=== PATIENT | male | born 1990 | race Caucasian/White ===

== ENCOUNTER 2023-01-10 20:56 | Outpatient (OUT) | payer OTHER, SELFPAY | END 2023-01-10 20:57 | disposition home or self-care (01) | LOC: SLEEP 20:56 | PROVIDERS: PCP Physician Assistant Medical; Visit Provider Physician Assistant Medical | DX: G47.33 Obstructive sleep apnea (adult) (pediatric) (principal) | CPT/HCPCS: 95811 ==

== ENCOUNTER 2023-02-02 11:01 | Emergency (ER) | payer OTHER, SELFPAY ==
[2023-02-02] VITALS (28 sets, daily range): BP systolic 114–206; BP diastolic 70–141; PULSE 63–111; RESP 19–20; TEMP 36.4; O2SAT 91–98; BMI 36.6
[2023-02-02] MEDS: ONDANSETRON PF 4 MG/2 ML VIAL IV (11:24)
[2023-02-02] MEDS: 0.9 % SODIUM CHLORIDE 1,000 ML 999 ML IV (11:24)
--- NOTE | 2023-02-02 11:30 | ECG_ITS ---
[facility] Test Date: 2023-02-02 Pat Name: DEREK CENTENO Department: Room: - Gender: Male Editorial Director: : 1990 Requested By: Order Number: [id number] Reading MD: HAYLEY AKINS Measurements Intervals [place] Rate: 92 P: 31 PA: 158 QRS: 26 QRSD: 86 T: 28 QT: 360 QTc: 410 Interpretive Statements 1100 Sinus rhythm 9110 normal ECG No previous ECG available for comparison Electronically Signed On 02-03-2023 6:58:13 EDT by HAYLEY AKINS
[2023-02-02] MEDS: LORAZEPAM 2 MG/ML 1 ML VIAL 1 MG IV (11:49)
[2023-02-02] MEDS: LEVETIRACETAM 500 MG/5 ML SOLUTION PO (11:55)
[2023-02-02 12:00] LABS: Basophils Absolute Auto 0.1 10^3/uL (0.0-0.1); Basophils Percent Auto 0.3 % (0.2-2.0); Eosinophils Absolute Auto 0.2 10^3/uL (0.0-0.7); Eosinophils Percent Auto 0.6 % (0.9-7.0); Hematocrit 48.7 % (42.0-54.0); Immature Granulocytes Abs Auto 0.24 10^3/uL (0.00-0.03); Immature Granulocytes Pct Auto 0.9 % (0.0-0.5); Lymphocytes Absolute Auto 4.9 10^3/uL (1.2-3.8); Lymphocytes Percent Auto 18.3 % (20.5-60.0); Mean Corpuscular HGB Conc 32.9 g/dL (29.9-35.2); Mean Corpuscular Hemoglobin 30.7 pg (25.9-34.0); Mean Corpuscular Volume 93.3 fL (80.0-94.0); Mean Platelet Volume 11.1 fL (9.5-13.5); Monocytes Absolute Auto 2.2 10^3/uL (0.3-0.8); Monocytes Percent Auto 8.2 % (1.7-12.0); Neutrophils Absolute Auto 19.2 10^3/uL (1.4-6.5); Neutrophils Percent Auto 71.7 % (43.0-75.0); Platelet Count 364 10^3/uL (150-450); Red Blood Count 5.22 10^6/uL (4.70-6.10); Red Cell Distribution Width 13.9 % (11.0-15.0); White Blood Count 26.8 10^3/uL (4.0-11.0)
[2023-02-02 12:18] LABS: Alanine Aminotransferase 59 U/L (16-63); Albumin Globulin Ratio 0.8; Albumin Level 3.8 g/dL (3.4-5.0); Alkaline Phosphatase 63 U/L (46-116); Aspartate Amino Transferase 49 U/L (15-37); BUN Creatinine Ratio 11.6; Bilirubin Total 0.6 mg/dL (0.2-1.0); Calcium 9.4 mg/dL (8.5-10.1); Carbon Dioxide 15.2 mmol/L (21.0-32.0); Chloride 100 mmol/L (98-107); Estimated GFR (African America >60 (>=60); Estimated GFR (Non-African Ame >60 (>=60); Globulin 4.8 g/dL; Glucose 173 mg/dL (74-106); Magnesium 2.2 mg/dL (1.8-2.4); Potassium 4.2 mmol/L (3.5-5.1); Sodium 137 mmol/L (136-145); Total Protein 8.6 g/dL (6.4-8.2)
--- NOTE | 2023-02-02 13:49 | ED_ITS ---
HPI - Seizure General Chief Complaint: Seizure Stated Complaint: SEIZURE Time Seen by Provider: 02/02/23 11:09 Source: family Mode of arrival: Wheelchair History of Present Illness HPI Narrative: patient with history of epilepsy presents after multiple seizures at home. Family member told me that he had a recent change in his seizure meds. She has some concern because he sees a different provider each time they go tot he neurologist's office and then meds get changes. The patient is post-ctal on arrival. No injuries suspected. Patient sees YADIRA in [place]. 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 Takes keppra and depakote Seizure History: Yes Place: home Related Data Home Medications Medication Instructions Recorded Confirmed allopurinol 300 mg tablet 300 mg PO DAILY 02/02/23 02/02/23 divalproex 250 mg tablet,delayed 500 mg PO BID 02/02/23 02/02/23 release divalproex 250 mg tablet,extended 750 mg PO BID 02/02/23 02/02/23 release 24 hr levetiracetam 500 mg tablet 500 mg PO BID 02/02/23 02/02/23 Allergies Allergy/AdvReac Type Severity Reaction Status Date / Time naproxen [From Aleve] Allergy Severe Verified 02/02/23 11:07 Exam Narrative Exam Narrative: Nurses note and vital signs reviewed and patient is not hypoxic. afebrile General: The patient is slightly confused and drowsy on arrival Skin: Warm, dry, no pallor noted. Head: Normocephalic, atraumatic Neck: Supple, trachea mid-line. Full ROM and no cervical spinal tenderness. Eyes: PERRLA, EOMI ENT: no oral injury - bit his tongue with an abrasion Cardiovascular: Regular Rate and Rhythm Respiratory: Patient is in no distress, no accessory muscle use, lungs are clear to auscultation, no wheezing, rales or rhonchi Chest Wall: no tenderness, no flail chest, contusion, abrasion, or signs of trauma. Back: No thoracic or lumbar tenderness to palpation. Negative straight leg raise bilaterally. Musculoskeletal: no sign of long bone fracture, no tenderness, no swelling. Pulses at femoral, DP, PT, and popliteal were 2+ bilaterally. Moves all four extremities in all modalities with 5/5 strength. GI: Normal bowel sounds, no tenderness to palpation, no masses appreciated. No rebound, guarding, or rigidity noted. Neurological: normal motor, normal sensory. Psychiatric: Cooperative Constitutional Vital Signs, click to edit/add: Last Vital Signs Temp 97.6 F 02/02/23 11:08 Pulse 73 02/02/23 13:10 Resp 19 02/02/23 11:29 BP 131/71 02/02/23 13:00 Pulse Ox 98 02/02/23 13:10 O2 Del Method Room Air 02/02/23 11:08 Course Vital Signs Vital signs: Vital Signs Temperature 97.6 F 02/02/23 11:08 Pulse Rate 98 H 02/02/23 11:08 Respiratory Rate 20 02/02/23 11:08 Blood Pressure 181/116 H 02/02/23 11:08 Pulse Oximetry 91 L 02/02/23 11:08 Oxygen Delivery Method Room Air 02/02/23 11:08 Temperature 97.6 F 02/02/23 11:08 Pulse Rate 73 02/02/23 13:10 Respiratory Rate 19 02/02/23 11:29 Blood Pressure 131/71 02/02/23 13:00 Pulse Oximetry 98 02/02/23 13:10 Oxygen Delivery Method Room Air 02/02/23 11:08 MDM - Seizure MDM Narrative Medical decision making narrative: seizure precautions initiated.Patient was placed on [place] and EKG ob tained. Blood drawn and sent for evaluation. He was medicated with Keppra and Ativan. He woke up and was able to talk and interact normally has a normal neurological examination and no evidence of bony fracture or other injury. He does have a headache, which is typical during and following his seizures. WBC elevated at 26k but no fever, chills or recent symptoms to suggest infection - suspect it is reactive after multiple seizures. Remainder of blood testing unremarkable. Patient monitored for 3 hours in ED and was able to be discharged home, awake and alert and oriented x4 with GCS 15 and no further complaints. ED return if he worsens. Neuro follow up as scheduled if not earlier Lab Data Attestation: I reviewed the patient's lab results. Labs: Lab Results 02/02/23 Range/Units 11:12 WBC 26.8 H (4.0-11.0) 10^3/uL RBC 5.22 (4.70-6.10) 10^6/uL Hgb 16.0 (14.0-18.0) g/dL Hct 48.7 (42.0-54.0) % MCV 93.3 (80.0-94.0) fL MCH 30.7 (25.9-34.0) pg MCHC 32.9 (29.9-35.2) g/dL RDW 13.9 (11.0-15.0) % Plt Count 364 (150-450) 10^3/uL MPV 11.1 (9.5-13.5) fL Neut % (Auto) 71.7 (43.0-75.0) % Lymph % (Auto) 18.3 L (20.5-60.0) % [place] % (Auto) 8.2 (1.7-12.0) % Eos % (Auto) 0.6 L (0.9-7.0) % Baso % (Auto) 0.3 (0.2-2.0) % Neut # (Auto) 19.2 H (1.4-6.5) 10^3/uL Lymph # (Auto) 4.9 H (1.2-3.8) 10^3/uL [place] # (Auto) 2.2 H (0.3-0.8) 10^3/uL Eos # (Auto) 0.2 (0.0-0.7) 10^3/uL Baso # (Auto) 0.1 (0.0-0.1) 10^3/uL Abs Immat Gran (auto) 0.24 H (0.00-0.03) 10^3/uL Imm/Tot Granulo (auto) 0.9 H (0.0-0.5) % Sodium 137 (136-145) mmol/L Potassium 4.2 (3.5-5.1) mmol/L Chloride 100 (98-107) mmol/L Carbon Dioxide 15.2 L (21.0-32.0) mmol/L Anion Gap 26.0 BUN 11.0 (7.0-18.0) mg/dL Creatinine 0.95 (0.70-1.30) mg/dL Est GFR ( Amer) >60 (>=60) Est GFR (Non-Af Amer) >60 (>=60) BUN/Creatinine Ratio 11.6 Glucose 173 H (74-106) mg/dL Calcium 9.4 (8.5-10.1) mg/dL Magnesium 2.2 (1.8-2.4) mg/dL Total Bilirubin 0.6 (0.2-1.0) mg/dL AST 49 H (15-37) U/L ALT 59 (16-63) U/L Alkaline Phosphatase 63 (46-116) U/L Total Protein 8.6 H (6.4-8.2) g/dL Albumin 3.8 (3.4-5.0) g/dL Globulin 4.8 g/dL Albumin/Globulin Ratio 0.8 ECG Data Attestation: I personally reviewed and interpreted this ECG as follows: Interpretation: EKG interpretation: Emergency Department physician interpretation. Normal sinus rhythm at 92bpm. Normal axis, normal intervals and no ST segment elevation or depression. normal EKG Discharge Plan Discharge Chief Complaint: Seizure Clinical Impression: Epileptic seizure Patient Disposition: Home, Self-Care Time of Disposition Decision: 13:55 Prescriptions / Home Meds: No Action allopurinol 300 mg tablet 300 mg PO DAILY divalproex 250 mg tablet extended release 24 hr 750 mg PO BID levetiracetam 500 mg tablet 500 mg PO BID divalproex 250 mg tablet,delayed release (DR/EC) 500 mg PO BID Instructions: Epilepsy (ED), Recurrent Seizures in Adults (ED) Stand Alone Forms: Portal Instructions Referrals: JOHANNA SANTOYO [Primary Care Provider] - 1 week
[2023-02-02] MEDS: KETOROLAC TROMETHAMINE 30 MG/ML VIAL IVP (14:12)
== END 2023-02-02 14:23 | disposition home or self-care (01) ==
PROVIDERS: Emergency Provider Emergency Medicine; PCP Nurse Practitioner Family
DX: G40.909 Epilepsy, unspecified, not intractable, without status epilepticus (principal); Z79.899 Other long term (current) drug therapy
CPT/HCPCS: 36415; 80053; 83735; 85025; 93005; 96374; 96375; 99285

== ENCOUNTER 2023-02-03 10:53 | Outpatient (REF) | payer OTHER, SELFPAY ==
[2023-02-03 11:15] LABS: Basophils Percent Auto 0.2 % (0.2-2.0); Eosinophils Absolute Auto 0.1 10^3/uL (0.0-0.7); Eosinophils Percent Auto 1.3 % (0.9-7.0); Hematocrit 42.5 % (42.0-54.0); Hemoglobin 14.4 g/dL (14.0-18.0); Immature Granulocytes Abs Auto 0.03 10^3/uL (0.00-0.03); Immature Granulocytes Pct Auto 0.3 % (0.0-0.5); Lymphocytes Absolute Auto 3.1 10^3/uL (1.2-3.8); Lymphocytes Percent Auto 30.3 % (20.5-60.0); Mean Corpuscular HGB Conc 33.9 g/dL (29.9-35.2); Mean Corpuscular Hemoglobin 30.9 pg (25.9-34.0); Mean Corpuscular Volume 91.2 fL (80.0-94.0); Mean Platelet Volume 10.3 fL (9.5-13.5); Monocytes Absolute Auto 0.8 10^3/uL (0.3-0.8); Monocytes Percent Auto 7.9 % (1.7-12.0); Neutrophils Absolute Auto 6.1 10^3/uL (1.4-6.5); Platelet Count 284 10^3/uL (150-450); Red Blood Count 4.66 10^6/uL (4.70-6.10); White Blood Count 10.2 10^3/uL (4.0-11.0)
[2023-02-03 12:13] LABS: Alanine Aminotransferase 55 U/L (16-63); Albumin Globulin Ratio 0.9; Albumin Level 3.6 g/dL (3.4-5.0); Alkaline Phosphatase 50 U/L (46-116); Anion Gap 16.2; Aspartate Amino Transferase 30 U/L (15-37); BUN Creatinine Ratio 14.1; Bilirubin Total 0.9 mg/dL (0.2-1.0); Calcium 9.1 mg/dL (8.5-10.1); Carbon Dioxide 25.6 mmol/L (21.0-32.0); Chloride 103 mmol/L (98-107); Estimated GFR (African America >60 (>=60); Estimated GFR (Non-African Ame >60 (>=60); Glucose 99 mg/dL (74-106); Potassium 3.8 mmol/L (3.5-5.1); Sodium 141 mmol/L (136-145); Thyroid Stimulating Hormone 1.111 uIU/mL (0.358-3.740); Total Protein 7.6 g/dL (6.4-8.2)
[2023-02-06 20:07] LABS: Levetiracetam (Keppra), S 6.9 ug/mL (10.0-40.0)
== END 2023-02-03 10:54 | disposition home or self-care (01) ==
LOC: LAB 10:53
PROVIDERS: PCP Nurse Practitioner Family
DX: R56.9 Unspecified convulsions (principal); G40.209 Localization-related (focal) (partial) symptomatic epilepsy and epileptic syndromes with complex partial seizures, not intractable, without status epilepticus; G47.01 Insomnia due to medical condition
CPT/HCPCS: 36415; 80053; 80164; 80177; 84443; 85025

== ENCOUNTER 2023-08-12 08:36 | Outpatient (REF) | payer OTHER, SELFPAY | END 2023-08-12 08:37 | disposition home or self-care (01) | LOC: LAB 08:36 | PROVIDERS: PCP Nurse Practitioner Family | DX: G40.109 Localization-related (focal) (partial) symptomatic epilepsy and epileptic syndromes with simple partial seizures, not intractable, without status epilepticus (principal) | CPT/HCPCS: 36415; 80235 ==

== ENCOUNTER 2024-11-30 11:13 | Emergency (ER) | payer BC, SELFPAY ==
[2024-11-30 11:18] VITALS: BP 140/104; PULSE 60; TEMP 36.6; O2SAT 98; BMI 37.7
--- OUTSIDE RECORDS SUMMARY | 2024-11-30 11:24 | XMS_ITS | Encounter Summary ---
Author Organization [facility] Address [address] [place] [address] Care Team Providers Care Physics And Astronomy Professor Name Role Phone Ruperto Contreras Primary Care Provider [phone] Source Comments In the event this information is protected by the Federal Confidentiality of Alcohol and Drug AbusePatient Records regulations: The Federal rules restrict any use of the information to criminally investigate or prosecute any alcohol or drug abuse patient.[facility] Reason for Visit * Reason Onset Date Comments Refill Request 11/25/2024 Encounter Details Date Type Department Care Team (Late st Contact Info) Description 11/25/2024 Refill Neurology [address], [place] [id number] Jeffry Arteaga PA-C [address] [facility] [address] [place] [address] Refill Request Social History Tobacco Use Types Packs/Day Years Used Date Smoking Tobacco: Never Assessed PHQ-2 Answer Date Recorded PHQ-2 score 0 10/16/2023 Sex and Gender Information Value Date Recorded Sex Assigned at Male 03/21/2023 9:37 AM EDT Legal Sex Male 9:36 AM EDT Gender Identity Male 03/21/2023 9:37 AM EDT Sexual Orientation Straight 03/21/2023 9: 37 AM EDT documented as of this encounter Functional Status * Are you deaf or do you have serious difficulty hearing? Answer Date of Assessment Author No 04/23/2023 5:44 PM Daina Chris RN * Are you blind or do you have serious difficulty seeing, even when wearing glasses? Answer Date of Assessment Author No 04/23/2023 5:44 PM Daina Chris RN * Do you have serious difficulty walking or climbing stairs? Answer Date of Assessment Author No 04/23/2023 5:44 PM Daina Chris RN * Do you have difficulty dressing or bathing? Answer Date of Assessment Author No 04/23/2023 5:44 PM Daina Chris RN * Because of a physical, mental, or emotional condition, do you have difficulty doing errands alone such as visiting a doctor's office or shopping? Answer Date of Assessment Author No 04/23/2023 5:44 PM Daina Chris RN documented as of this encounter Mental Status * Because of a physical, mental, or emotional condition, do you have serious difficulty concentrating, remembering, or making decisions? Answer Entry Date Author No 04/23/2023 5:44 PM Daina Chris RN documented in this encounter Miscellaneous Notes * Telephone Encounter - Amanda Lopez - 11/26/2024 3:57 PM EDT Request declined - Refills still showing active and available at local pharmacy. 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
--- OUTSIDE RECORDS SUMMARY | 2024-11-30 11:24 | XMS_ITS | Clinical Summary ---
Author Organization [facility] Address [address] [place], [place] [id number] Care Team Providers Care Coordinator Cardiopulmonary Services Name Role Phone Diane Ruperto Xie DO Primary Care Provider [phone] Allergies Active Allergy Reactions Criticality Noted Date Comments Naproxen Rash High 06/06/2021 Medications allopurinol (ZYLOPRIM) 100 mg tablet Take 300 mg by mouth once daily. 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 May repeat dose in alternate nostril after 10 minutes based on response and tolerability. 4 Each 1 04/23/[address] (DEPAKOTE) 500 mg EC tablet Take 1 tablet by mouth two times a day. 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 90 tablet 1 11/15/19 25 2024 Active lacosamide (VIMPAT) 200 mgIndications:Fo amanda epilepsy with impairment of consciousness (HCC) Take 1 tablet by mouth every 12 hours for 90 days. Need appointment for further refills. 180 tablet 11/27/19 25 2024 Active lacosamide (VIMPAT) 200 mgIndications:Fo amanda epilepsy with impairment of consciousness (HCC) Take 1 tablet by mouth two times a day for 180 days. 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 90 tablet 1 05/21/20 24 2024 Discontinued Active Problems Problem Noted Date Diagnosed Date Seizure-like activity 04/24/2023 Nicotine use disorder, F17.2 04/22/2023 Focal epilepsy with impairment of consciousness 04/21/2023 Encounters Date Type Department Care Team Description 11/30/2024 Nurse Triage NURSE SERVICE PARTS COORDINATOR [address] [phone] Ruth Hill, lean specialist Problem 11/26/2024 Patient Msg Neurology [address] [phone] Provider, Ccf Annual Epilepsy 11/25/2024 Refill Neurology [address] [phone] Jeffry Arteaga PA-C Refill Request 11/24/2024 Refill Neurology [address] [phone] Ruth Melvin APRN.ELECTRONIC MASKING SYSTEM OPERATOR Refill Request 11/14/2024 Refill Neurology [address] [phone] Katrina Alvarez PA-C Refill Request 11/14/2024 Refill Neurology [address] [place] [address] Katrina Alvarez PA-C Refill Request from Last 3 Months Social History Tobacco Use Types Packs/Day Years Used Date Smoking Tobacco: Never Assessed Tobacco Cessation:Counseling Given: No PHQ-2 Answer Date Recorded PHQ-2 score 0 10/16/2023 Sex and Gender Information Value Date Recorded Sex Assigned at Male 03/21/2023 9:37 AM EDT Legal Sex Male 9:36 AM EDT Gender Identity Male 03/21/2023 9:37 AM EDT Sexual Orientation Straight 03/21/2023 9: 37 AM EDT Last Filed Vital Signs Vital Sign Reading Time Taken Comments Blood Pressure 131/76 04/23/2023 12:22 PM EST Pulse 71 04/23/2023 12:22 PM EST Temperature 36.8 C (98.2 F) 04/23/2023 12:22 PM EST Respiratory Rate 16 04/23/2023 12:2 2 PM EST Oxygen Saturation 98% 04/23/2023 12: 22 PM EST Inhaled Oxygen Concentration - - Weight 126.2 kg (278 lb 3.5 oz) 04/22/2023 3:54 AM EST Height 182.9 cm (6') 04/21/2023 4:30 PM EST Body Mass Index 37.73 04/21/2023 4:30 PM EST Plan of Treatment Health Maintenance Due Date Last Done Comments Anxiety Screening 12/23/2009 Depression Screening 12/23/2009 HIV Screening 12/23/2009 Hepatitis C Screening 12/23/2009 DTaP,Tdap,Td Vaccine (1 - Tdap) 12/23/2010 Hepatitis B Vaccine (1 of 3 - 19+ 3-dose series) 12/23 Covid-19 Vaccine ( - season) 2024 Influenza Vaccine (Season Ended) 2025 Insurance Fondu PPO Care Teams Coordinator Cardiopulmonary Services Relationship Specialty Start Date End Date Ruperto Contreras DO [address] [facility] [place] [address] PCP - General Family Medicine 04/12/23
--- OUTSIDE RECORDS SUMMARY | 2024-11-30 11:24 | XMS_ITS | Clinical Summary ---
Author Organization [facility] Address [address] [place] [address] Care Team Providers Care Foreign Law Consultant Name Role Phone Unavailable Primary Care Provider Unavailabl e Social History Tobacco Use Types Packs/Day Years Used Date Smoking Tobacco: Never Assessed Sex and Gender Information Value Date Recorded Sex Assigned at Not on file Legal Sex Male 6:55 PM EDT Gender Identity Not on file Sexual Orientation Not on file Last Filed Vital Signs Vital Sign Reading Time Taken Comments Blood Pressure 128/79 12/04/2019 12:00 PM EDT Pulse - - Temperature - - Respiratory Rate - - Oxygen Saturation - - Inhaled Oxygen Concentration - - Weight 114 kg (252 lb) 12/04/2019 12:00 PM EDT Height 180.3 cm (5' 11 ) 12/04/2019 12:00 PM EDT Body Mass Index 35.15 12/04/2019 12:00 PM EDT Plan of Treatment Not on file
--- OUTSIDE RECORDS SUMMARY | 2024-11-30 11:24 | XMS_ITS | Encounter Summary ---
Author Organization [facility] Address [address] [place] [address] Care Team Providers Care Bean Sorter Name Role Phone Ruperto Contreras Rojas MCDONALD Primary Care Provider Source Comments In the event this information is protected by the Federal Confidentiality of Alcohol and Drug AbusePatient Records regulations: The Federal rules restrict any use of the information to criminally investigate or prosecute any alcohol or drug abuse patient.[facility] Encounter Details Date Type Department Care Team (Late st Contact Info) Description 06/27/2024 Patient Msg Neurology [address] [place] [address] Provider, Vno Refill Social History Tobacco Use Types Packs/Day Years [...] Daina Chris RN documented in this encounter Plan of Treatment Not on file documented as of this encounter Visit Diagnoses Not on filedocumented in this encounter Care Teams Bean Sorter Relationship Specialty Start Date End Date Ruperto Contreras DO [facility] [place] [address] PCP - General Family Medicine 04/12/23 documented as of this encounter
--- OUTSIDE RECORDS SUMMARY | 2024-11-30 11:24 | XMS_ITS | Encounter Summary ---
Author Organization [facility] Address [address] [place] [address] Care Team Providers Care Beater Room Helper Name Role Phone Ruperto Contreras Rojas MCDONALD Primary Care Provider [phone] Source Comments In the event this information is protected by the Federal Confidentiality of Alcohol and Drug AbusePatient Records regulations: The Federal rules restrict any use of the information to criminally investigate or prosecute any alcohol or drug abuse patient.[facility] Encounter Details Date Type Department Care Team (Late st Contact Info) Description 03/13/2024 Patient Msg Neurology [address] [place], [place] [phone] Provider, Ccf Appointment request Social History Tobacco Use Types Packs/Day Years [...] on filedocumented in this encounter Care Teams Beater Room Helper Relationship Specialty Start Date End Date Ruperto Contreras DO [address] [place] [address] PCP - General Family Medicine 04/12/23 documented as of this encounter
--- OUTSIDE RECORDS SUMMARY | 2024-11-30 11:24 | XMS_ITS | Encounter Summary ---
Author Organization [facility] Address [address] [place] [address] Care Team Providers Care Pharmacy Benefit Manager Name Role Phone Ruperto Contreras Primary Care Provider [phone] Source Comments In the event this information is protected by the Federal Confidentiality of Alcohol and Drug AbusePatient Records regulations: The Federal rules restrict any use of the information to criminally investigate or prosecute any alcohol or drug abuse patient.[facility] Reason for Visit * Reason Comments Refill Request Encounter Details Date Type Department Care Team (Late st Contact Info) Description 11/24/2024 Refill Neurology [address] [place] [address] Lynda Ochoa, DERECK.[facility] [address] [place], [place] [phone] Refill Request Social History Tobacco Use Types [...] encounter Miscellaneous Notes * Telephone Encounter - Lynda Ochoa APRN.CNP - 11/26/2024 12:15 PM EDT The following approved medication requests have been transmitted electronically. Requested Prescriptions Signed Prescriptions Disp Refills lacosamide (VIMPAT) 200 mg 180 tablet 0 Sig: Take 1 tablet by mouth every 12 hours for 90 days. Need appointment for further refills. Authorizing Provider: LYNDA OCHOA APRN.CNP * Telephone Encounter - Amanda Lopez - 11/26/2024 11:10 AM EDT Prescription Refill: Requested by: pharmacy Please E-Scribe Caller Contact Number: nona Pharmacy Name: [place], [place] Pharmacy Number: [phone] Generic/ brand: generic 30 or 90 day supply requested: 90 Last appointment: 10/16/2023 Next Appointment: No follow-up scheduled. Appointment needed - sent to S[facility] Schedulers Patient of Dr. 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
--- OUTSIDE RECORDS SUMMARY | 2024-11-30 11:24 | XMS_ITS | Encounter Summary ---
Author Organization [facility] Address [address] [place] [address] Care Team Providers Care Environmental Services Director Name Role Phone Ruperto Contreras Rojas MCDONALD Primary Care Provider [phone] Source Comments In the event this information is protected by the Federal Confidentiality of Alcohol and Drug AbusePatient Records regulations: The Federal rules restrict any use of the information to criminally investigate or prosecute any alcohol or drug abuse patient.[facility] Encounter Details Date Type Department Care Team (Late st Contact Info) Description 11/26/2024 Patient Msg Neurology [address] [place], [place] [phone] Provider, Ccf Annual Epilepsy Social History Tobacco Use Types Packs/Day Years [...] on filedocumented in this encounter Care Teams Environmental Services Director Relationship Specialty Start Date End Date Ruperto Contreras DO [address] [place] [address] PCP - General Family Medicine 04/12/23 documented as of this encounter
--- OUTSIDE RECORDS SUMMARY | 2024-11-30 11:24 | XMS_ITS | Encounter Summary ---
Author Organization [facility] Address [address] [place] [address] Care Team Providers Care Php Web Developer Name Role Phone Ruperto Contreras Primary Care Provider [phone] Source Comments In the event this information is protected by the Federal Confidentiality of Alcohol and Drug AbusePatient Records regulations: The Federal rules restrict any use of the information to criminally investigate or prosecute any alcohol or drug abuse patient.[facility] Reason for Visit * Reason Onset Date Comments Refill Request 04/26/2024 Encounter Details Date Type Department Care Team (Late st Contact Info) Description 04/26/2024 Telephone Neurology [address] [phone] Mary Alice Lynne MD [address] [place] [address] Refill Request Social History Tobacco [...] encounter Miscellaneous Notes * Telephone Encounter - Nel Fisher RN - 05/08/2024 12:21 PM EST I spoke with , stated Toñito is taking VPA 750/750 500 mg for the [address] and 250mg for the ER Nel Fisher RN * Telephone Encounter - Nel Fisher RN - 05/08/2024 9:14 AM EST Call was made to the patient, no answer. Message was left requesting a return call. Nel Goff RN * Telephone Encounter - Nel Fisher RN - 05/06/2024 12:37 PM EST Call was made to the patient, no answer. Message was left requesting a return call. Nel Goff RN * Telephone Encounter - Nel Fisher RN - 04/30/2024 3:49 PM EST Call was made to the patient, no answer. Message was left requesting a return call. Nel Goff RN * Telephone Encounter - Heidy Shell RN - 04/26/2024 1:22 PM EST Called the patient, left [facility] for return call. Heidy Shell RN * Telephone Encounter - Hussain Lacey PA-C - 04/26/2024 9:40 AM EST Patient no longer taking this dose per chart review, please confirm with patient and remove from chart if they confirm not on this dosage. The following approved medication requests have been refused Requested Prescriptions Refused Prescriptions Disp Refills divalproex DR (DEPAKOTE) 500 mg EC tablet 180 tablet 2 Sig: Take 1 tablet by mouth two times a day. Refused By: HUSSAIN LACEY Reason for Refusal: A Refill not appropriate Hussain Lacey PA-C * Telephone Encounter - Amanda Lopez - 04/26/2024 8:33 AM EST Prescription Refill: Requested by: pharmacy Please E-Scribe Pharmacy Name: [place], [place] Pharmacy Number: [phone] Generic/ brand: generic 30 or 90 day supply requested: 90 Last appointment: 10/16/2023 Next Appointment: none Patient of Dr. Bustamante documented in this encounter Plan of Treatment Not on file documented as of this encounter Visit Diagnoses Not on filedocumented in this encounter Care Teams Php Web Developer Relationship Specialty Start Date End Date Ruperto Contreras DO [address] [place] [address] PCP - General Family Medicine 04/12/23 documented as of this encounter
--- OUTSIDE RECORDS SUMMARY | 2024-11-30 11:26 | XMS_ITS | CCD ---
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 Name Role Phone Ruperto CONTRERAS Primary Care Physician Idania Rodriguez Unavailable Unavailable DO Matty Ryan Emergency Provider [phone] DO Ruperto Contreras Primary Care Provider KIM PERRY Attending Unavailable MISC, DOCTOR Consulting Unavailable REQUEST, NONE LISTED Primary Care Unavaila ble KIM PERRY Admitting Unavailable REQUEST, NONE LISTED Primary Care Unavaila ble LOWE, KIM Admitting Unavailable LOWSerafin, KIM Consulting Unavailable KIM PERRY Attending Unavailable Unavailable Primary Care Provider UnavailRuperto Bhardwaj DO Primary Care Provider Ruperto Contreras DO Primary Care Provider Chencho Sanchez Attending Unavailab Chencho Bearden Admitting Unavailab Ruperto Eli Primary Care Unavailable MARY ALICE LYNNE Attending RUPERTO Gaytan Primary Care Unavailable MARY ALICE LYNNE Attending RUPERTO Gaytan Primary Care Unavailable Allergies Allergy Classification Reported Allergen(s) Allergy Type Date of Onset Reaction(s) Facility (20 sources) Naproxen; Translations: [naproxen] Drug Allergy 1 Eruption of skin (disorder), Rash [facility] (1 source) Naproxen Drug Allergy 1 [facility] Repository Medications Current Medications Medication Drug Class(es) Dates Sig (Normalized) Sig (Original) allopurinol 100 mg oral tablet (20 sources) Xanthine Oxidase Inhibitor Start: 03-09-2022 Allopurinol 100 mg Tablet Active 150 MG PO Daily March 08, 2022 11:00pm Start: 03-09-2022 take 150 mg by mouth once melody y Allopurinol Active 150 MG PO Daily March 09, 2022 12:00am Start: 11-13-2021 allopurinol 30 0 mg Tab 150 mg = 0.5 tab(s), Oral, Daily, # 90 tab(s), Refills(s) 3, Pharmacy: [facility] #[id number], 182.8, cm, 11/12/21 13:24:00 EDT, Height/Length Dosing, 117.5, kg, 11/12/21 13:24:00 EDT, Weight Dosing Start Date: 11/13/21 Status: Ordered Start: 09-30-2021 take 1 tablet by jamaica once daily allopurinol 100 mg Tab 100 mg = 1 tab(s), Oral, Daily, do not start during flare-, # 90 tab(s), Refills(s) 0 Start Date: 09/30/21 Status: Ordered Start: 03-02-2020 take 1 tablet by j[place]ica once daily allopurinol 300 mg Tab 300 mg = 1 tab(s), Oral, Daily, # 90 tab(s), Refills(s) 3, Pharmacy: [facility]/pharmacy #[id number], 182.8, cm, 03/02/20 13:41:00 EDT, Height/Length Dosing, 121.8, kg, 03/02/20 13:41:00 EDT, Weight Dosing Start Date: 03/02/20 Status: Ordered Start: 03-02-2020 take 3 tablets by mo [facility] once daily allopurinol (ZYLOPRIM) 100 mg tablet Take 300 mg by mouth once daily. 03/02/2020 Active Comment on above: Take 300 mg by mouth once daily. 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 90 tablet 1 05/22/2023 11/18/2023 Active Comment on above: Take 1 tablet by jamaica th daily at bedtime for 180 days. Take 1 tablet by jamaica th daily at bedtime. 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 Need appointment for further refills. 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 180 tablet 1 11/17/2023 05/15/2024 Active Comment on above: take 1 tablet by ORA L/FEEDING TUBE route two times a day. Take 1 tablet by jamaica th two times a day for 180 days. levETIRAcetam 750 mg oral tablet (5 sources) Start: 03-09-20 take 1 tablet by mouth twice daily Levetiracetam (Keppra) 750 mg Tablet Active 750 MG PO Twice daily March 08, 2022 11:00pm Start: 2021 take 1 tablet by jamaica th twice daily levetiracetam 500 mg Tab 500 mg = 1 tab(s), Oral, BID, # 60 tab(s), Refills(s) 0, Pharmacy: [facility]/pharmacy #[id number], 182, cm, 12/23/21 14:06:00 EDT, Height/Length Dosing, 114, kg, 12/23/21 14:06:00 EDT, Weight Dosing Start Date: 12/24/21 Status: Ordered methylPREDNISolone 4 mg oral tablet (1 source) Corticosteroid Start: 09-30-2021 End: 10-06-2021 Medrol 4 mg Tab = 1 packet(s), Oral, As Directed, as directed on package labeling, X 6 day(s), # 21 tab(s), Refills(s) 0 Start Date: 09/30/21 Stop Date: 10/06/21 Status: Ordered midazolam 50 mg/ml nasal spray (18 sources) Benzodiazepine Start: 04-23-2023 midazolam (NAYZILAM) 5 mg/spray (0.1 mL) nasal spray Indications: 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 May repeat dose in alternate nostril after 10 minutes based on response and tolerability. 4 Each 1 04/23/2023 Active Comment on above: Use 1 [place] in the n ose as needed for seizures lasting longer than 3 minutes. May repeat dose in alternate nostril after 10 minutes based on response and tolerability. Multivitamin preparation (2 sources) Start: 01-03-2022 multivitamin Daily, Refill(s) 0 Start Date: 01/03/22 Status: Ordered predniSONE 20 mg oral tablet (4 sources) Start: 02-15-2022 take 2 tablets by mouth once daily predniSONE 20 mg Tab 40 mg = 2 tab(s), Oral, Daily, # 14 tab(s), Refills(s) 0, Pharmacy: [facility]/pharmacy #[id number], 182, cm, 01/03/22 13:08:00 EDT, Height/Length Dosing, 117.5, kg, 01/03/22 13:08:00 EDT, Weight Dosing Start Date: 02/15/22 Status: Ordered Start: 11-12-2021 predniSONE 10 mg Tab See Instructions, 6 tabs x 3 days, then 4 tabs x 5 days, then 2 tabs x 5 days, then 1 tab x 5 days, then 1/2 tab x 5 days with food, # 60 tab(s), Refills(s) 0, Pharmacy: [facility] #[id number], 182.8, cm, 11/12/21 13:24:00 EDT, Height/Length Dosi... Start Date: 11/12/21 Status: Ordered Start: 07-08-2021 predniSONE 10 mg Tab See Instructions, 6 tabs x 3 days, then 4 tabs x 5 days, then 2 tabs x 5 days, then 1 tab x 5 days, then 1/2 tab x 5 days with food, # 60 tab(s), Refills(s) 0, Pharmacy: [facility]/pharmacy #[id number], 182.8, cm, 11/11/20 14:03:00 EDT, Height/Length Dosing, 128.... 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 180 tablet 1 08/01/2024 01/28/2025 Active Start: 03-27-2023 End: 12-26-2024 take 1 tablet by mouth twice daily divalproex DR (DEPAKOTE) 500 mg EC tablet Take 1 tablet by mouth two times a day. 60 tablet 5 06/29/2024 12/26/2024 Active Start: 01-25-2023 End: 05-05-2024 take 1 tablet by mouth twice daily divalproex ER (DEPAKOTE ER) 250 mg 24 hr tablet Take 1 tablet by mouth two times a day. 180 tablet 1 11/07/2023 05/05/2024 Active Comment on above: Take 1 tablet by jamaica th two times a day. Take 250 mg by mouth two times a day. Problems Active Problems Problem Classification Problem Date Documented Date Episodic/Chronic Attention-deficit, conduct, and disruptive behavior disorders (1 source) Attention deficit hyperactivity disorder; Translations: [Attention-deficit hyperactivity disorder, unspecified type] Onset: 12-23-2021 Chronic Diseases of white blood cells (1 source) Leukocytosis; Translations: [Elevated white blood cell count, unspecified] Onset: 12-23-2021 Chronic Disorders of lipid metabolism (10 sources) Familial hypercholesterolemia; Translations: [Familial hypercholesterolemia] Onset: 12-23-2021 04-23-2020 Chronic Epilepsy; convulsions (20 sources) Idiopathic generalized epilepsy; Translations: [Generalized idiopathic epilepsy and epileptic syndromes, intractable, with status epilepticus] Onset: 01-03-2022 Chronic Comment on above: Problem List clean-u p per request of Phys. ALEXSANDRA Cmte Gout and other crystal arthropathies (20 sources) Chronic gouty arthritis; Translations: [Gout] Onset: 11-12-2021 04-23-2020 Chronic Osteoarthritis (8 sources) Osteoarthritis of joint of left ankle 09-29-2020 Chronic Other connective tissue disease (16 sources) Foot pain 09-29-2020 Episodic Other connective tissue disease (2 sources) H/O: musculoskeletal disease; Translations: [Personal history of other diseases of the musculoskeletal system and connective tissue] Onset: 11-12-2021 Episodic Other connective tissue disease (6 sources) H/O: gout 11-12-2021 Episodic Other lower respiratory disease (3 sources) Snoring; Translations: [Snoring] Onset: 01-03-2022 Episodic Other non-traumatic joint disorders (8 sources) Ankle instability 11-09-2018 Episodic Comment on above: right right Other non-traumatic joint disorders (1 source) Ankle joint pain; Translations: [Pain in right ankle and joints of right foot] Onset: 11-12-2021 Episodic Other non-traumatic joint disorders (6 sources) Ankle pain 11-12-2021 Episodic Other nutritional; endocrine; and metabolic disorders (8 sources) Body mass index 30+ - obesity 09-29-2020 Chronic Other nutritional; endocrine; and metabolic disorders (11 sources) Obesity; Translations: [Other obesity] Onset: 11-12-2021 11-11-2020 Chronic Other nutritional; endocrine; and metabolic disorders (2 sources) Obese class II; Translations: [Body mass index (BMI) 35.0-35.9, adult] Onset: 11-12-2021 Chronic Other nutritional; endocrine; and metabolic disorders (1 source) Hyperuricemia without signs of inflammatory arthritis and tophaceous disease; Translations: [Hyperuricemia without signs of inflammatory arthritis and tophaceous disease] Onset: 01-03-2022 Episodic Other screening for suspected conditions (not mental disorders or infectious disease) (4 sources) Blood urate raised 11-13-2021 Episodic Other upper respiratory infections (1 source) Acute pharyngitis, unspecified; Translations: [Acute pharyngitis] 06-13-2024 Episodic Residual codes; unclassified (3 sources) Obstructive sleep apnea syndrome; Translations: [Obstructive sleep apnea (adult) (pediatric)] Onset: 01-03-2022 Chronic Residual codes; unclassified (4 sources) Obstructive sleep apnea (adult) (pediatric); Translations: [OBSTRUCTIVE SLEEP APNEA] Onset: 10-05-2022 Chronic Residual codes; unclassified (1 source) Procedure carried out on subject; Translations: [Encounter for prophylactic measures, unspecified] Onset: 12-23-2021 Episodic Substance-related disorders (20 sources) Smoker; Translations: [Nicotine dependence] Onset: 12-23-2021 05-28-2014 Chronic Comment on above: Added secondary to d ocumentation in Social History. Added secondary to d ocumentation in Social History. Substance-related disorders (1 source) Cannabis misuse; Translations: [Cannabis use, unspecified, uncomplicated] Onset: 12-23-2021 Episodic Unclassified (16 sources) Patient encounter status 09-29-2020 Viral infection (8 sources) Viral disease 11-11-2020 Episodic Past or Other Problems Problem Classification Problem Date Documented Da te Episodic/Chronic Epilepsy; convulsions (20 sources) Seizure; Translations: [Unspecified convulsions] Onset: 12-23-2021 Episodic Unclassified (1 source) Exposure to 2019 novel coronavirus; Translations: [Contact with and (suspected) exposure to COVID19] Viral infection (8 sources) Disease caused by 2019-nCoV 06-28-2021 Results Test Name Value Interpretation Reference Range Facility [facility] JOSÉPHILIPP CHERY ([id number]) 1990 M Date Time Provider Department 06/29/24 HAY ESCALANTE During your visit today, we recorded the following information about you: Hay Escalante PA-C 06/29/2024 1:56 PM Signed Patient requesting refill of Depakote 500 mg EC tablet, still has 250 mg ER tablet. The following approved medication requests have been transmitted electronically. Requested Prescriptions Signed Prescriptions Disp Refills divalproex DR (DEPAKOTE) 500 mg EC tablet 60 tablet 5 Sig: Take 1 tablet by mouth two times a day. Authorizing Provider: HAY ESCALANTE PA-C June 29, 2024 1:56 PM Allergies As of Date: 06/29/2024 Noted Allergy Reaction NAPROXEN 06/06/2021 2 - Rash Date Reviewed: 04/23/2023 Reviewed by: Maurice Fernandez PA-C - Fully Assessed Order(s):divalpro ex DR (DEPAKOTE) 500 mg EC tabletTake 1 tablet by mouth two times a day.Disp: 60 tabletRfl: 5 Prescriptions as of 06/29/2024 - divalproex DR (DEPAKOTE) 500 mg EC tablet Take 1 tablet by mouth two times a day. - cloBAZam (ONFI) 10 mg tab tablet Take 1 tablet by mouth daily at bedtime for 180 days. - divalproex ER (DEPAKOTE ER) 250 mg 24 hr tablet Take 1 tablet by mouth two times a day. - lacosamide (VIMPAT) 200 mg Take 1 tablet by mouth two times a day for 180 days. - midazolam (NAYZILAM) 5 mg/spray (0.1 mL) nasal spray Use 1 [place] in the nose as needed for seizures lasting longer than 3 minutes. May repeat dose in alternate nostril after 10 minutes based on response and tolerability. - allopurinol (ZYLOPRIM) 100 mg tablet Take 300 mg by mouth once daily. Problem List As Of Date 06/29/2024 Noted Resolved Focal epilepsy with impairment of consciousness*03/2023 Nicotine use disorder, F17.2 [F17.200] 04/22/2023 Seizure-like activity (HCC) [R56.9] 04/24/2023 Prescriptions ordered this encounter Disp Refills Start End DIVALPROEX 500 MG TABLET,DELAYED REL* 60 t* 5 06/29/2024 12/26/2024 Route: ORAL Sig: Take 1 tablet by mouth two times a day. Medications Discontinued During This Encounter Prescriptions - divalproex DR (DEPAKOTE) 500 mg EC tablet (Discontinued) Take 1 tablet by mouth two times a day. - lacosamide (VIMPAT) 50 mg tab (Discontinued) Take 1 tablet by mouth two times a day for 180 days. Encounter Status:Closed by HAY ESCALANTE on 06/29/24 [facility] Panel InformationOrdered By: Yolanda Erwin on 06-13-2024 Quick Strep (POC) [facility] Consultation Noteon 10-17-19 24 Consultation Note [id number] [facility] CNPNoreen 08-16-2023 DAVID Telephone (NE50MN) PHILIPP CENTENO ([id number]) 1990 M Date Time Provider Department 08/16/23 MARY ALICE LYNNE NE50MN During your visit today, we recorded the following information about you: Brook Arreola 08/16/2023 7:15 AM Signed OUTSIDE LAB REPORT FACILITY NAME [facility] PHONE/FAX COLLECTION DATE AND TIME: 08/12/23 0810 Uploaded to [facility] Cinthia Fisher RN 08/16/2023 2:07 PM Signed JASON Valentin Kelly, BIOFUELS MANAGER.HOT BREAD BAKER 08/16/2023 2:31 PM Signed KRISTINA Interval Impression: 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 Doing better after ASMs were adjusted. We will not adjust ASM now since last seizure occurred in May 2023 soon after ASMs were adjusted. Plan to adjust vimpat or onfi, eventually switch VPA to ZNS PLAN: Vimpat 200 mg bid VPA 750 mg bid Onfi 10 mg LCM level Follow up in 4 months 08/04/23 LCM increase to 250 mg BID after breakthrough seizure Level optimized- no further changes to LCM Any further seizures would increase Onfi Allergies As of Date: 08/16/2023 Noted Allergy Reaction NAPROXEN 06/06/2021 2 - Rash Date Reviewed: 04/23/2023 Reviewed by: Maurice Fernandez PA-C - Fully Assessed Reason for Visit: Outside Labs Results [437] Cmt: LCM Prescriptions as of 08/16/2023 - lacosamide (VIMPAT) 50 mg tab Take 1 tablet by mouth two times a day for 180 days. - divalproex DR (DEPAKOTE) 500 mg EC tablet Take 1 tablet by mouth two times a day. - divalproex ER (DEPAKOTE ER) 250 mg 24 hr tablet Take 1 tablet by mouth two times a day. - lacosamide (VIMPAT) 200 mg take 1 tablet by ORAL/FEEDING TUBE route two times a day. - cloBAZam (ONFI) 10 mg tab tablet Take 1 tablet by mouth daily at bedtime for 180 days. - midazolam (NAYZILAM) 5 mg/spray (0.1 mL) nasal spray Use 1 [place] in the nose as needed for seizures lasting longer than 3 minutes. May repeat dose in alternate nostril after 10 minutes based on response and tolerability. - allopurinol (ZYLOPRIM) 100 mg tablet Take 300 mg by mouth once daily. Problem List As Of Date 08/16/2023 Noted Resolved Focal epilepsy with impairment of consciousness*03/2023 Nicotine use disorder, F17.2 [F17.200] 04/22/2023 Seizure-like activity (HCC) [R56.9] 04/24/2023 Encounter Status:Closed by CINTHIA MCDONALD on 08/16/23 [facility] CNPNoreen 08-10-2023 [facility] Telephone (NE50MN) PHILIPP CENTENO ([id number]) 1990 Date Time Provider Department 08/10/23 MARY ALICE LYNNE NE50MN During your visit today, we recorded the following information about you: Laly Cr 08/10/2023 4:09 PM Signed Prior Authorization Needed: Received by: Fax Requested by (pharmacy name): [facility] Phone number: [phone] Name of medication: lacosamide Strength and dosage: 50mg Insurance company name and phone #: cmm Patient ID: [id number] PCN #: BIN#: Group #: Patient of Cinthia Springer RN 08/11/2023 1:15 PM Signed Philipp Centeno (Hernandez: [id number]) - Status [facility] to [facility] The plan will fax you a determination, typically within 1 to 5 business days. Lacosamide 50MG tablets JASON Valentin Lucretia 08/11/2023 3:29 PM Signed Approval [facility] lacosamide 08/11/23-08/06/24. Upload Cinthia Fisher RN 08/11/2023 4:21 PM Signed Noted Cinthia Fisher RN Allergies As of Date: 08/10/2023 Noted Allergy Reaction NAPROXEN 06/06/2021 2 - Rash Date Reviewed: 04/23/2023 Reviewed by: Maurice Fernandez PA-C - Fully Assessed Reason for Visit: Insurance Authorization [[id number]] Cmt: lacosamide Prescriptions as of 08/11/2023 - lacosamide (VIMPAT) 50 mg tab Take 1 tablet by mouth two times a day for 180 days. - divalproex DR (DEPAKOTE) 500 mg EC tablet Take 1 tablet by mouth two times a day. - divalproex ER (DEPAKOTE ER) 250 mg 24 hr tablet Take 1 tablet by mouth two times a day. - lacosamide (VIMPAT) 200 mg take 1 tablet by ORAL/FEEDING TUBE route two times a day. - cloBAZam (ONFI) 10 mg tab tablet Take 1 tablet by mouth daily at bedtime for 180 days. - midazolam (NAYZILAM) 5 mg/spray (0.1 mL) nasal spray Use 1 [place] in the nose as needed for seizures lasting longer than 3 minutes. May repeat dose in alternate nostril after 10 minutes based on response and tolerability. - allopurinol (ZYLOPRIM) 100 mg tablet Take 300 mg by mouth once daily. Problem List As Of Date 08/10/2023 Noted Resolved Focal epilepsy with impairment of consciousness*03/2023 Nicotine use disorder, F17.2 [F17.200] 04/22/2023 Seizure-like activity (HCC) [R56.9] 04/24/2023 Encounter Status:Closed by CINTHIA MCDONALD on 08/11/23 [facility] Ken 08-03-2023 CNPN Telephone (NE50MN) PHILIPP CENTENO ([id number]) 1990 M Date Time Provider Department 08/03/23 DIANNA ABARCA MAR YALICE NE50MN During your visit today, we recorded the following information about you: Gerda Chapin 08/03/2023 2:57 PM Signed Seizure activity: Name of Caller : Philipp Centeno Relationship to patient: Self Contact phone number: [phone] Date of seizure: August 03, 2023 Duration: very brief Back to Baseline (Yes/No): Yes Emergency treatment needed (Yes/No): No Patient of Cinthia Springer, JASON 08/04/2023 9:13 AM Signed 07/21/2023 KRISTINA shares a video of a GTC seizure today Interval Impression: 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 Doing better after ASMs were adjusted. We will not adjust ASM now since last seizure occurred in May 2023 soon after ASMs were adjusted. Plan to adjust vimpat or onfi, eventually switch VPA to ZNS PLAN: Vimpat 200 mg bid VPA 750 mg bid Onfi 10 mg LCM level Follow up in 4 months Call was made to the patient, no answer. Message was left requesting a return call. 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 Doing better after ASMs were adjusted. We will not adjust ASM now since last seizure occurred in May 2023 soon after ASMs were adjusted. Plan to adjust vimpat or onfi, eventually switch VPA to ZNS PLAN: Vimpat 200 mg bid VPA 750 mg bid Onfi 10 mg LCM level Follow up in 4 months Last Visit: 07/21/2023 Next Visit: October 15 Date and Time of seizure: 08/03 around 230 pm, patient stated he started convulsing. Patient stated the week prior seizure he felt weird lb danyel, he was not using his bipap (stated he will start), stated he took his AM meds twice. Last seizure 05/2023 Witnessed: Aura: yes Type of seizure: focal Duration: 5 LOC: no ROGER: yes TB: no UI: no Injury: no Rescue Medication used: no ASM: vimpat 200/200 VPA 750/750 Onfi 10 mg qhs Triggers (recent illness, medication missed/changes, sleep issues, substance use): he was not using his bipap (stated he will start), stated he took his AM meds twice. Postictal Symptoms and Duration: confused Back to [place]: yes JASON Valentin Kelly, APRN.CNP 08/04/2023 12:01 PM Signed Plan was to increase LCM (to 250 mg BID by 50 mg per week) or Onfi ( to 10 mg BID by 5 mg per week) as next yandy. Does pt have preference? Dennys Collier APRN.Cinthia Sierra RN 08/04/2023 12:04 PM Signed Call was made to the patient, no answer. Message was left requesting a return call. Cinthia Acuna RN, RN 08/07/2023 9:47 AM Signed I spoke with Philipp and they agreed to increase increase LCM (to 250 mg BID by 50 mg per week. Request to send RX to [id number] - [place] [address] - [address] [phone] [place] [address] Lab requisition emailed for signature Trough level explained. JASON Valentin Kelly, APRN.CNP 08/08/2023 6:31 AM Signed The following approved medication requests have been transmitted electronically. Requested Prescriptions Signed Prescriptions Disp Refills lacosamide (VIMPAT) 50 mg tab 180 tablet 1 Sig: Take 1 tablet by mouth two times a day for 180 days. 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 - divalproex DR (DEPAKOTE) 500 mg EC tablet Take 1 tablet by mouth two times a day. - divalproex ER (DEPAKOTE ER) 250 mg 24 hr tablet Take 1 tablet by mouth two times a day. - lacosamide (VIMPAT) 200 mg take 1 tablet by ORAL/FEEDING TUBE route two times a day. - cloBAZam (ONFI) 10 mg tab tablet Take 1 tablet by mouth daily at bedtime for 180 days. - midazolam (NAYZILAM) 5 mg/spray (0.1 mL) nasal spray Use 1 [place] in the nose as needed for seizures lasting longer than 3 minutes. May repeat dose in alternate nostril after 10 minutes based on response and tolerabili (more content not included)... Normal [facility] Consultation Noteon 07-21-19 Consultation Note [id number]#1.00TIFF [facility] Consultation Noteon 05-24-20 Consultation Note [id number]#1.00TIFF [facility] Consultation Noteon 04-24-20 Consultation Note [id number]#1.00TIFF [facility] Consultation Noteon 01-31-20 Consultation Note [id number]#1.00CD:12 7 [facility] Consultation Noteon 12-13-19 Consultation Note [id number]#1.00CD:127 Normal [facility] Consultation Noteon 10-26-19 Consultation Note [id number]#1.00CD:12 7 Normal [facility] LEVETIRACETAM, SERUM OR PLAS MAon 09-20-2022 Levetiracetam, S 11.3 ug/mL Normal 10.0-40.0 [facility] Comment on above: Performed By: #### K EPPRA #### [facility] [address] [place] [address] Dr. Melisa Arciniega CBC AUTO DIFFon 09-17-2022 BASO # 0.0 103/ul Normal 0.0-0.1 [facility] Comment on above: Performed By: #### C BC #### [facility] [address] [place] [address] Dr. Melisa Arciniega Basophils/100 WBC (Bld) 0.3 % Normal 0.2-2.0 [facility] Comment on above: Performed By: #### C BC #### [facility] [address] [place] [address] Dr. Melisa Arciniega EO # 0.5 103/ul Normal 0.0-0.7 [facility] Comment on above: Performed By: #### C BC #### [facility] [address] [place] [address] Dr. Melisa Arciniega Eosinophils/100 WBC (Bld) 4.7 % Normal 0.9-7.0 [facility] Comment on above: Performed By: #### C BC #### [facility] [address] [place] [address] Dr. Melisa Acriniega Erythrocyte distribution width (RBC) [Ratio] 13.6 % Normal 11.0-15.0 [facility] Comment on above: Performed By: #### C BC #### [facility] [address] [place] [address] Dr. Melisa Arciniega Hematocrit (Bld) [Volume fraction] 43.0 % Normal 42.0-54.0 [facility] Comment on above: Performed By: #### C BC #### [facility] [address] [address] [address] Melisa Arciniega Hemoglobin (Bld) [Mass/Vol] 15.0 g/dL Normal 14.0-18.0 [facility] Comment on above: Performed By: #### C BC #### [facility] [address] [address] [address] Melisa Arciniega IG # 0.05 10e3/ul Critically high 0.00-0.03 [facility] Comment on above: Performed By: #### C BC #### [facility] [address] [place] [address] Dr. Melisa Arciniega IG % 0.4 % Normal 0.0-0.5 [facility] Comment on above: Performed By: #### C BC #### [facility] [address] [place] [address] Dr. Melisa Arciniega LYMPH # 3.0 103/ul Normal 1.2-3.8 [facility] Comment on above: Performed By: #### C BC #### [facility] [address] [place] [address] Dr. Melisa Arciniega Lymphocytes/100 WBC (Bld) 26.5 % Normal 20.5-60.0 [facility] Comment on above: Performed By: #### C BC #### [facility] [address] [place] [address] Dr. Melisa Arciniega MANUAL DIFF REQ NO Normal [facility] Comment on above: Performed By: #### C BC #### [facility] [address] [place] [address] Dr. Melisa Arciniega MCH (RBC) [Entitic mass] 30.1 pg Normal 25.9-34.0 [facility] Comment on above: Performed By: #### C BC #### [facility] [address] [place] [address] Dr. Melisa Arciniega MCHC (RBC) [Mass/Vol] 34.9 g/dL Normal 29.9-35.2 [facility] Comment on above: Performed By: #### C BC #### [facility] [address] [address] [address] Melisa Arciniega MCV (RBC) [Entitic vol] 86.2 fL Normal 80.0-94.0 [facility] Comment on above: Performed By: #### C BC #### [facility] [address] [address] [address] Melisa Arciniega MONO # 0.9 103/ul Critically high 0.3-0.8 [facility] Comment on above: Performed By: #### C BC #### [facility] [address] [place] [address] Dr. Melisa Arciniega Monocytes/100 WBC (Bld) 7.9 % Normal 1.7-12.0 [facility] Comment on above: Performed By: #### C BC #### [facility] [address] [place] [address] Dr. Melisa Arciniega NEUT # 6.7 103/ul Critically high 1.4-6.5 [facility] Comment on above: Performed By: #### C BC #### [facility] [address] [place] [address] Dr. Melisa Arciniega Neutrophils/100 WBC (Bld) 60.2 % Normal 43.0-75.0 [facility] Comment on above: Performed By: #### C BC #### [facility] [address] [place] [address] Dr. Melisa Arciniega Platelet mean volume (Bld) [Entitic vol] 10.2 fL Normal 9.5-13.5 [facility] Comment on above: Performed By: #### C BC #### [facility] [address] [place] [address] Dr. Melisa Arciniega PLT 380 103/ul Normal 150-450 [facility] Comment on above: Performed By: #### C BC #### [facility] [address] [place] [address] Dr. Melisa Arciniega RBC 4.99 106/ul Normal 4.70-6.10 [facility] Comment on above: Performed By: #### C BC #### [facility] [address] [place] [address] Dr. Melisa Arciniega WBC 11.2 103/ul Critically high 4.0-11.0 [facility] Comment on above: Performed By: #### C BC #### [facility] [address] [place] [address] Dr. Melisa Arciniega PROF 14(COMP METB)on 023 Albumin [Mass/Vol] 3.7 g/dL Normal 3.4-5.0 [facility] Comment on above: Performed By: #### C MP #### [facility] [address] [place] [address] Dr. Melisa Arciniega Albumin/Globulin [Mass ratio] 0.9 {ratio} Normal [facility] Comment on above: Performed By: #### C MP #### [facility] [address] [place] [address] Dr. Melisa Arciniega ALP [Catalytic activity/Vol] 81 U/L Normal 46-116 [facility] Comment on above: Performed By: #### C MP #### [facility] [address] [place] [address] Dr. Melisa Arciniega ALT [Catalytic activity/Vol] 53 U/L Normal 16-63 [facility] Comment on above: Performed By: #### C MP #### [facility] [address] [place] [address] Dr. Melisa Arciniega Anion gap [Moles/Vol] 14.2 mmol/L Normal [facility] Comment on above: Performed By: #### C MP #### [facility] [address] [place] [address] Dr. Melisa Arciniega AST [Catalytic activity/Vol] 25 U/L Normal 15-37 [facility] Comment on above: Performed By: #### C MP #### [facility] [address] [place] [address] Dr. Melisa Arciniega Bilirubin [Mass/Vol] 0.7 mg/dL Normal 0.2-1.0 [facility] Comment on above: Performed By: #### C MP #### [facility] [address] [place] [address] Dr. Melisa Arciniega Calcium [Mass/Vol] 9.2 mg/dL Normal 8.5-10.[address] [facility] Comment on above: Performed By: #### C MP #### [facility] [address] [address] [address] Melisa Arciniega Chloride [Moles/Vol] 101 mmol/L Normal 98-107 [facility] Comment on above: Performed By: #### C MP #### [facility] [address] [address] [address] Melisa Arciniega CO2 [Moles/Vol] 25.9 mmol/L Normal 21.0-32.0 [facility] Comment on above: Performed By: #### C MP #### [facility] [address] [place] [address] Dr. Melisa Arciniega Creatinine [Mass/Vol] 0.66 mg/dL Critically low 0.70-1.30 [facility] Comment on above: Performed By: #### C MP #### [facility] [address] [place] [address] Dr. Melisa Arciniega EGFR-AF FILIPINO >60 Normal >=60 [facility] Comment on above: Performed By: #### C MP #### [facility] [address] [place] [address] Dr. Melisa Arciniega EGFR-NON AF FILIPINO >60 Normal >=60 [facility] Comment on above: Performed By: #### C MP #### [facility] [address] [place] [address] Dr. Melisa Arciniega Globulin (S) [Mass/Vol] 4.2 g/dL Normal [facility] Comment on above: Performed By: #### C MP #### [facility] [address] [address] [address] Melisa Arciniega Glucose [Mass/Vol] 100 mg/dL Normal 74-[address] [facility] Comment on above: Performed By: #### C MP #### [facility] [address] [place] [address] Dr. Melisa Arciniega Potassium [Moles/Vol] 4.1 mmol/L Normal 3.5-5.1 [facility] Comment on above: Performed By: #### C MP #### [facility] [address] [address] [address] Melisa Arciniega Protein [Mass/Vol] 7.9 g/dL Normal 6.4-8.2 [facility] Comment on above: Performed By: #### C MP #### [facility] [address] [address] [address] Melisa Arciniega Sodium [Moles/Vol] 137 mmol/L Normal 136-145 [facility] Comment on above: Performed By: #### C MP #### [facility] [address] [address] [address] Melisa Arciniega Urea nitrogen [Mass/Vol] 7.0 mg/dL Normal 7.0-18.0 [facility] Comment on above: Performed By: #### C MP #### [facility] [address] [address] [address] Melisa Arciniega Urea nitrogen/Creatinine [Mass ratio] 10.6 mg/mg Normal [facility] Comment on above: Performed By: #### C MP #### [facility] [address] [address] [address] Melisa Arciniega Amphetamine Screen Ql (U)Ord ered By: Matty Ryan on 03-09-2022 Amphetamines Ql (U) Negative Negative [facility] Automated erythrocytes count in urine sediment (number/area)Ordered By: Matty Ryan on 03-09-2022 RBC Auto (Urine sed) [#/Area] None seen [HPF] 0-4 [facility] Automated leukocytes count i n urine sediment (number/area)Ordered By: Matty Ryan on 03-09-2022 WBC Auto (Urine sed) [#/Area] 0-1 [HPF] 0-4 [facility] Barbiturates [Presence] in U rineOrdered By: Matty Ryan on 03-09-2022 Barbiturates Ql (U) Negative Negative [facility] Basophils Auto (Bld) [#/Vol] Ordered By: Matty Ryan on 03-09-2022 Basophils (Bld) [#/Vol] 0.1 10*3/uL 0.0-0.2 [facility] Basophils/100 WBC Auto (Bld) Ordered By: Matty Ryan on 03-09-2022 Basophils/100 WBC (Bld) 0.8 % . [facility] Benzodiazepines [Presence] i n UrineOrdered By: Matty Ryan on 03-09-2022 Benzodiazepines Ql (U) Negative [facility] Bilirubin Test strip Ql (U)O rdered By: Matty Ryan on 03-09-2022 Bilirubin Ql (U) Negative Negative [facility] Blood hemoglobin measurement (mass/volume)Ordered By: Matty Ryan on 03-09-2022 Hemoglobin (Bld) [Mass/Vol] 16.0 g/dL 13.0-17.0 [facility] Blood leukocytes automated c ount (number/volume)Ordered By: Matty Ryan on 03-09-2022 WBC (Bld) [#/Vol] 15.7 10*3/uL 4.5-11.0 [facility] Cannabinoids [Presence] in U rine by Screen methodOrdered By: Matty Ryan on 03-09-2022 Cannabinoids Screen Ql (U) Positive Negative [facility] Comment on above: These are unconfirme d results and should not be used for legal purposes. Drug Cut-Off Concentration: AMPH 1000 ng/mL JUAN C 200 ng/mL PATRICE 200 ng/mL COCM 300 ng/mL OP 300 ng/mL PCP 25 ng/mL THC 20 ng/mL Color Auto (U)Ordered By: Usman Ryan on 03-09-2022 Color (U) Yellow Yellow [facility] Creatinine and Glomerular fi ltration rate.predicted panel (S/P/Bld)Ordered By: Matty Ryan on 03-09-2022 Creatinine [Mass/Vol] 0.96 mg/dL 0.64-1.27 [facility] Eosinophils Auto (Bld) [#/Vo l]Ordered By: Matty Ryan on 03-09-2022 Eosinophils (Bld) [#/Vol] 0.1 10*3/uL 0.0-0.45 [facility] Eosinophils/100 WBC Auto (Bl d)Ordered By: Matty Ryan on 03-09-2022 Eosinophils/100 WBC (Bld) 0.6 % . [facility] Erythrocyte distribution wid th Auto (RBC) [Ratio]Ordered By: Matty Ryan on 03-09-2022 Erythrocyte distribution width (RBC) [Ratio] 14.3 % 12.0-14.8 [facility] Estimated glomerular filtrat ion rate (GFR) non- AmericanOrdered By: Matty Ryan on 03-09-2022 GFR/1.73 sq M.predicted among non-blacks MDRD (S/P/Bld) [Vol rate/Area] > 60 mL/Min [facility] Hematocrit Auto (Bld) [Volum e fraction]Ordered By: Matty Ryan on 03-09-2022 Hematocrit (Bld) [Volume fraction] 47.9 % 38.8-50.0 [facility] Ketones Auto test strip (U) [Mass/Vol]Ordered By: Matty Ryan on 03-09-2022 Ketones (U) [Mass/Vol] Trace Negative Fi [facility] - Chemistry and C hemistry - challengeOrdered By: Matty Ryan on 03-09-2022 Magnesium [Mass/Vol] 2.0 mg/dL 1.6-2.6 [facility] - Drug toxicology Ordered By: Matty Ryan on 03-09-2022 Opiates Ql (U) Negative Negative [facility] - Hematology and Cell countsOrdered By: Matty Ryan on 03-09-2022 Nucleated RBC/100 WBC (Bld) [Ratio] 0.1 % 0-0.5 [facility] - UrinalysisOrder ed By: Matty Ryan on 03-09-2022 Hyaline casts LM Ql (Urine sed) 0-8 [LPF] 0-8 [facility] Lymphocytes Auto (Bld) [#/Vo l]Ordered By: Matty Ryan on 03-09-2022 Lymphocytes (Bld) [#/Vol] 3.5 10*3/uL 1.00-4.8 [facility] Lymphocytes/100 WBC Auto (Bl d)Ordered By: Matty Ryan on 03-09-2022 Lymphocytes/100 WBC (Bld) 22.2 % . [facility] MCH Auto (RBC) [Entitic mass ]Ordered By: Matty Ryan on 03-09-2022 MCH (RBC) [Entitic mass] 29.2 pg 27.5-35.2 [facility] MCHC Auto (RBC) [Mass/Vol]Or dered By: Matty Ryan on 03-09-2022 MCHC (RBC) [Mass/Vol] 33.3 g/dL 32.5-35.6 [facility] MCV Auto (RBC) [Entitic vol] Ordered By: Matty Ryan on 03-09-2022 MCV (RBC) [Entitic vol] 87.8 fL 83.5-101 [facility] Monocytes Auto (Bld) [#/Vol] Ordered By: Matty Ryan on 03-09-2022 Monocytes (Bld) [#/Vol] 0.9 10*3/uL 0.0-0.8 [facility] Monocytes/100 WBC Auto (Bld) Ordered By: Matty Ryan on 03-09-2022 Monocytes/100 WBC (Bld) 5.6 % . [facility] Neutrophils Auto (Bld) [#/Vo l]Ordered By: Matty Ryan on 03-09-2022 Neutrophils (Bld) [#/Vol] 11.1 10*3/uL 1.8-7.7 [facility] Neutrophils/100 WBC Auto (Bl d)Ordered By: Matty Ryan on 03-09-2022 Neutrophils/100 WBC (Bld) 70.8 % . [facility] Nitrite Test strip Ql (U)Ord ered By: Matty Ryan on 03-09-2022 Nitrite Ql (U) Negative Negative [facility] No Panel InformationOrdered By: Matty Ryan on 03-09-2022 Estimated GFR () > 60 mL/Min [facility] Comment on above: GFR estimated refere nce range: According to KDOQI guidelines, <60 ml/min/1.73m2 is sufficient to diagnose a patient with chronic kidney disease. Pharmacy Creatinine Clearance (Chem 146.28 [facility] Phencyclidine Screen Ql (U)O rdered By: Matty Ryan on 03-09-2022 Phencyclidine Ql (U) Negative Negative [facility] Platelet mean volume Auto (B ld) [Entitic vol]Ordered By: Matty Ryan on 03-09-2022 Platelet mean volume (Bld) [Entitic vol] 8.7 fL 6.6-10.1 [facility] Platelets Auto (Bld) [#/Vol] Ordered By: Matty Ryan on 03-09-2022 Platelets (Bld) [#/Vol] 454 10*3/uL 150-450 [facility] Prolactin [Mass/volume] in S nancy or PlasmaOrdered By: Matty Ryan on 03-09-2022 Prolactin [Mass/Vol] 54.44 ng/mL 2.64-13.13 [facility] Protein Auto test strip (U) [Mass/Vol]Ordered By: Matty Ryan on 03-09-2022 Protein (U) [Mass/Vol] 100 mg/dL Negative [facility] RBC Auto (Bld) [#/Vol]Ordere d By: Matty Ryan on 03-09-2022 RBC (Bld) [#/Vol] 5.46 10*6/uL 3.90-5.60 [facility] Serum or plasma anion gap de terminationOrdered By: Matty Ryan on 03-09-2022 Anion gap [Moles/Vol] 26.7 mmol/L 6.0-15.0 [facility] Serum or plasma calcium manoj urement (mass/volume)Ordered By: Matty Ryan on 03-09-2022 Calcium [Mass/Vol] 10.0 mg/dL 8.2-10.2 [facility] Serum or plasma chloride alexy surement (moles/volume)Ordered By: Matty Ryan on 03-09-2022 Chloride [Moles/Vol] 100 mmol/L 95-114 [facility] Serum or plasma glucose manoj urement (mass/volume)Ordered By: Matty Ryan on 03-09-2022 Glucose [Mass/Vol] 170 mg/dL 70-100 [facility] Comment on above: ADA recommended refe rence rangeRandom Glucose Reference Range is dependent on time and content of last meal. Glucose of more than 200 mg/dL in a nonstressed, ambulatory subject supports the diagnosis of Diabetes Mellitus. Serum or plasma potassium me asurement (moles/volume)Ordered By: Matty Ryan on 03-09-2022 Potassium [Moles/Vol] 3.7 mmol/L 3.5-5.1 [facility] Serum or plasma sodium measu rement (moles/volume)Ordered By: Matty Ryan on 03-09-2022 Sodium [Moles/Vol] 139 mmol/L 136-146 [facility] Serum or plasma total carbon dioxide measurement (moles/volume)Ordered By: Matty Ryan on 03-09-2022 CO2 [Moles/Vol] 16.0 mmol/L 22.0-30.0 [facility] Serum or plasma urea nitroge n measurement (mass/volume)Ordered By: Matty Ryan on 03-09-2022 Urea nitrogen [Mass/Vol] 9 mg/dL 03-04 [facility] Specific gravity Auto test s trip (U) [Rel density]Ordered By: Matty Ryan on 03-09-2022 Specific gravity (U) [Rel density] 1.017 1.001-1.030 [facility] Squamous epithelial cells de tection in urine sediment by light microscopyOrdered By: Matty Ryan on 03-09-2022 Epithelial cells.squamous LM Ql (Urine sed) None seen [HPF] 0-2 [facility] Urine bacteria detection by automated methodOrdered By: Matty Ryan on 03-09-2022 Bacteria Auto Ql (U) None seen None Seen [facility] Urine clarity by refractomet ry automatedOrdered By: Matty Ryan on 03-09-2022 Clarity Refractometry automated (U) Clear Clear [facility] Urine cocaine detectionOrder ed By: Matty Ryan on 03-09-2022 Cocaine Ql (U) Negative Negative [facility] Urine glucose measurement by automated test strip (mass/volume)Ordered By: Matty Ryan on 03-09-2022 Glucose Auto test strip (U) [Mass/Vol] Normal mg/dL Normal [facility] Urine hemoglobin detection b y automated test stripOrdered By: Matty Ryan on 03-09-2022 Hemoglobin Auto test strip Ql (U) Negative Negative [facility] Urine leukocyte esterase det ection by automated test stripOrdered By: Matty Ryan on 03-09-2022 Leukocyte esterase Auto test strip Ql (U) Negative Negative [facility] Urobilinogen Auto test strip (U) [Mass/Vol]Ordered By: Matty Ryan on 03-09-2022 Urobilinogen (U) [Mass/Vol] Normal mg/dL Normal [facility] pH Auto test strip (U)Ordere d By: Matty Ryan on 03-09-2022 pH (U) 5.0 [pH] 5.0-9.0 [facility] CHEMISTRYOrdered By: SYSTEM SYSTEM on 2021 Anion gap [Moles/Vol] 11 mmol/L Normal 6 - 16 mEq/L [facility] Calcium [Mass/Vol] 9.5 mg/dL Normal 8.9 - 11. 1 mg/dL [facility] Chloride [Moles/Vol] 102 mmol/L Normal 101 - 1 11 mmol/L [facility] CO2 [Moles/Vol] 30 mmol/L Normal 21 - 31 mmol/L [facility] Creatinine [Mass/Vol] 0.9 mg/dL Normal 0.5 - 1.3 mg/dL [facility] GFR/1.73 sq M.predicted among blacks MDRD (S/P/Bld) [Vol rate/Area] mL/min/1.73 m2 Normal >=59mL/min/1. 73 m2 [facility] S GFR/1.73 sq M.predicted among non-blacks MDRD (S/P/Bld) [Vol rate/Area] mL/min/1.73 m2 Normal >=59mL/min/1. 73 m2 [facility] Chem S Glucose [Mass/Vol] 100 mg/dL Normal 55 - 199 mg/dL [facility] Magnesium [Mass/Vol] 1.8 mg/dL Normal 1.3 - 2 .4 mg/dL [facility] Potassium [Moles/Vol] 3.6 mmol/L Normal 3.5 - 5.3 mmol/L [facility] Sodium [Moles/Vol] 139 mmol/L Normal 135 - 145 mmol/L [facility] TSH Qn 1.15 m[IU]/L Normal 0.34 - 5.60 mcIU/mL [facility] Urea nitrogen [Mass/Vol] 11 mg/dL Normal 5 - 21 mg/d L [facility] Urea nitrogen/Creatinine [Mass ratio] 12 mg/mg Normal 10 - 20 [facility] HEMATOLOGYOrdered By: Ellyn Wade on 2021 WBC corrected for nucl RBC Auto (Bld) [#/Vol] 11.1 E9/L High 4.0 - 11.0 E9/L [facility] HemeAutoSS CHEMISTRYOrdered By: SYSTEM SYSTEM on 12-23-2021 Amphetamines Screen method >1000 ng/mL Ql (U) Negative (12/23/21 8:13 PM) Normal Negative [facility] Barbiturates Screen Ql (U) Negative (12/23/21 8:13 PM) Normal Negative [facility] Benzodiazepines Ql (U) Negative (12/23/21 8:13 PM) Normal Negative [facility] Cocaine Ql (U) Negative (12/23/21 8:13 PM) Normal Negative [facility] Opiates Screen Ql (U) Negative (12/23/21 8:13 PM) Normal Negative [facility] Phencyclidine Screen method >25 ng/mL Ql (U) Negative (12/23/21 8:13 PM) Normal Negative [facility] Tetrahydrocannabinol Screen method >50 ng/mL Ql (U) Positive 1 *ABN* (12/23/21 8:13 PM) Invalid Interpretation Code Negative [facility] Comment on above: Result Comment: Crit ical Result verified by repeat analysis\Critical Result UD_THC:POS Called to LEXY GASTELUM AT 3S by MONSTER HAMILTON And Read Back For Confirmation at: 12/23/2021 21:06:06 URINALYSISOrdered By: Marah Rock on 12-23-2021 Bilirubin Ql (U) Negative (12/23/21 8:13 PM) Normal Negative [facility] UA Auto SS Clarity (U) Clear (12/23/21 8:13 PM) Normal Clear [facility] UA Auto SS Color (U) Yellow (12/23/21 8:13 PM) Normal Yellow [facility] UA Auto SS Epithelial cells.squamous LM.HPF (Urine sed) [#/Area] 0-2 /HPF Normal 0-2/HPF [facility] UA Aut o SS Glucose Test strip (U) [Mass/Vol] Negative (12/23/21 8:13 PM) Normal Negative [facility] UA Auto SS Hemoglobin Ql (U) Negative (12/23/21 8:13 PM) Normal Negative [facility] UA Auto SS Ketones (U) [Mass/Vol] Negative (12/23/21 8:13 PM) Normal Negative [facility] UA Auto SS [place].plasma/[place].R BC (Bld) [Mass ratio] 0-3 /HPF Normal 0-3/HPF [facility] Au to SS Nitrite Ql (U) Negative (12/23/21 8:13 PM) Normal Negative [facility] UA Auto SS pH (U) 6.0 *NA* (12/23/21 8:13 PM) Invalid Interpretation Code 5.0 - 9.0 [facility] UA Auto SS Protein (U) [Mass/Vol] Negative (12/23/21 8:13 PM) Normal Negative [facility] UA Auto SS Specific gravity (U) [Rel density] 1.020 *NA* (12/23/21 8:13 PM) Invalid Interpretation Code 1.005 - 1.030 [facility] UA Auto SS UA Spec Desc Clean Catch (12/23/21 8:13 PM) Normal [facility] UA Auto SS Urobilinogen Qn (U) [id number] {Jeni'U}/dL Normal 0.0 - 1.0 EU/dL [facility]A Auto SS WBC Auto Ql (U) Negative (12/23/21 8:13 PM) Normal Negative [facility]A Auto SS WBC LM.HPF (Urine sed) [#/Area] 0-5 /HPF Normal 0-5/HPF [facility] UA Auto SS CHEMISTRYOrdered By: SYSTEM SYSTEM on 11-12-2021 CRP [Mass/Vol] 1.5 mg/dL Normal <=1.9mg/dL [facility] Remis ol Urate [Mass/Vol] 10.3 mg/dL High 2.2 - 7.4 mg/dL [facility] Remisol HEMATOLOGYOrdered By: SYSTEM SYSTEM on 11-12-2021 Basophils/100 WBC (Bld) 0.2 % Normal 0.0 - 2.0 % [facility] HemeAutoSS Basophils/Leukocytes Auto (Bld) [Pure # fraction] 0.0 E9/L Normal 0.0 - 0.2 E9/L [facility] HemeAutoSS Eosinophils/100 WBC (Bld) 1.8 % Normal 0.0 - 8.0 % [facility] HemeAutoSS Eosinophils/Leukocytes Auto (Bld) [Pure # fraction] 0.2 E9/L Normal 0.0 - 0.5 E9/L [facility] HemeAutoSS Lymphocytes/100 WBC (Bld) 23.8 % Normal 14.0 - 50.0 % [facility] HemeAutoSS Lymphocytes/Leukocytes Auto (Bld) [Pure # fraction] 3.3 E9/L Normal 1.0 - 4.0 E9/L [facility] HemeAutoSS Monocytes/100 WBC (Bld) 10.2 % Normal 4.0 - 14.0 % [facility] HemeAutoSS Monocytes/Leukocytes Auto (Bld) [Pure # fraction] 1.4 E9/L High 0.2 - 1.0 E9/L [facility]eAutoSS Neutrophils/100 WBC (Bld) 64.0 % Normal 36.0 - 75.0 % [facility] HemeAutoSS Neutrophils/Leukocytes Auto (Bld) [Pure # fraction] 8.8 E9/L High 2.0 - 7.5 E9/L [facility] HemeAutoSS HEMATOLOGYOrdered By: Mariya fournier on 11-12-2021 Erythrocyte distribution width (RBC) [Ratio] 13.7 % Normal 10.9 - 14.2 % [facility] HemeAutoSS Hematocrit (Bld) [Volume fraction] 42.1 % Normal 37.7 - 49.0 % [facility] HemeAutoSS Hemoglobin (Bld) [Mass/Vol] 14.7 g/dL Normal 13.5 - 17.5 gm/dL [facility] HemeAutoSS MCH (RBC) [Entitic mass] 30.0 pg Normal 27. 0 - 34.0 pg [facility] HemeAutoSS MCHC (RBC) [Mass/Vol] 34.8 g/dL Normal 31.4 - 36.0 gm/dL [facility] HemeAutoSS MCV (RBC) [Entitic vol] 86.1 fL Normal 80.0 - 100.0 fL [facility] HemeAutoSS Platelet mean volume (Bld) [Entitic vol] 8.1 fL Normal 6.4 - 10.8 fL [facility] HemeAutoSS Platelets (Bld) [#/Vol] 338.0 E9/L Normal 150. 0 - 500.0 E9/L [facility] HemeAutoSS RBC (Bld) [#/Vol] 4.9 E12/L Normal 4.3 - 5.9 E12/L [facility]eAutoSS Sed Rate Automated 11 mm/h Normal 0 - 19 mm/hr [facility] HemeAutoSS WBC corrected for nucl RBC Auto (Bld) [#/Vol] 13.7 E9/L High 4.0 - 11.0 E9/L [facility] HemeAutoSS Reference Laboratory Testing Ordered By: Generated DomainUser on 06-26-2021 SARS-CoV-2 (COVID-19) RNA GRACIELA+probe Ql (Resp) Not detected Invalid Interpretation Code Not Detected [facility] SendOutsSS Comment on above: Result Comment: This nucleic acid amplification test was developed and its performance characteristics determined by [facility]. Nucleic acid amplification tests include RT-PCR and TMA. This test has not been FDA cleared or approved. This test has been authorized by FDA under an Emergency Use Authorization (EUA). This test is only authorized for the duration of time the declaration that circumstances exist justifying the authorization of the emergency use of in vitro diagnostic tests for detection of SARS-CoV-2 virus and/or diagnosis of COVID-19 infection under section 564(b)(1) of the Act, 21 U.S.C. 360bbb-3(b) (1), unless the authorization is terminated or revoked sooner. When diagnostic testing is negative, the possibility of a false negative result should be considered in the context of a patient's recent exposures and the presence of clinical signs and symptoms consistent with COVID-19. An individual without symptoms of COVID-19 and who is not shedding SARS-CoV-2 virus would expect to have a negative (not detected) result in this assay. Performed at: [address] [id number] PhD Liya Stout Vital Signs Date Time Vital Sign Value Performing Clinician Facility 06-13-2024 10:34-0500 Body height 182.88 cm [facility] 06-13-2024 10:34-050 Body mass index (BMI) [Ratio] 41.8 kg/m2 [facility] 06-13-2024 10:34-0500 Body temperature 100 [degF] [facility] 06-13-2024 10:34-0500 Body weight 139.93 kg [facility] 06-13-2024 10:34-0500 Diastolic blood pressure 90 mm[Hg] [facility] 06-13-2024 10:34-0500 Heart rate 82 /min [facility] 06-13-2024 10:34-0500 Respiratory rate 18 /min [facility] 06-13-2024 10:34-0500 SaO2% (BldA) [Mass fraction] 97 % [facility] 06-13-2024 10:34-0500 Systolic blood pressure 138 mm[Hg] [facility] 03-09-2022 14:22-0400 Body temperature 97.7 [degF] DO Matty Alexanderister Work Phone: [facility] 03-09-2022 14:00-0400 Diastolic blood pressure 77 mm[Hg] DO Matty Keister Work Phone: [facility] 03-09-2022 14:00-0400 Heart rate 91 /min DO Matty Alexanderister Work Phone: [facility] 03-09-2022 14:00-0400 Respiratory rate 16 /min DO Matty Alexanderister Work Phone: [facility] 03-09-2022 14:00-0400 SaO2% (BldA) [Mass fraction] 97 % DO Matty Keister Work Phone: [facility] 03-09-2022 14:00-0400 Systolic blood pressure 119 mm[Hg] DO Matty Alexanderister Work Phone: [facility] 03-09-2022 12:27-0400 Inhaled oxygen flow rate 2 L/min DO Matty Keister Work Phone: [facility] 03-09-2022 12:17-0400 Body height 182.88 cm DO Matty Alexanderister Work Phone: [facility] 03-09-2022 12:17-0400 Body weight 113.39 kg DO Matty Alexanderister Work Phone: [facility] 01-03-2022 13:02-0400 Blood Pressure Location Ruperto KAPLE [facility] 01-03-2022 13:02-0400 Body temperature 97.88 [degF] Ruperto KAPLE [facility] 01-03-2022 13:02-0400 Diastolic blood pressure 70 mm[Hg] Ruperto KAPLE [facility] 01-03-2022 13:02-0400 Heart rate 72 /min Ruperto KAPLE [facility] 01-03-2022 13:02-0400 Respiratory rate 16 /min Ruperto KAPLE [facility] 01-03-2022 13:02-0400 SaO2% (BldA) [Mass fraction] 97 % Ruperto KAPLE [facility] 01-03-2022 13:02-0400 Systolic blood pressure 112 mm[Hg] Ruperto KAPLE [facility] 2021 16:45-0400 Hourly Rounding Adrian Roxann [facility] 2021 16:45-0400 Promise to Return Adrian Roxann [facility] 2021 16:01-0400 Body temperature 97.88 [degF] Adrian Roxann [facility] 2021 16:01-0400 Diastolic blood pressure 67 mm[Hg] Adrian Roxann [facility] 2021 16:01-0400 Heart rate 67 /min Adrian Roxann [facility] 2021 16:01-0400 Mean blood pressure 83 mm[Hg] Adrian Roxann [facility] 2021 16:01-0400 SaO2% (BldA) [Mass fraction] 99 % Adrian Roxann [facility] 2021 16:01-0400 Systolic blood pressure 114 mm[Hg] Adrian Roxann [facility] 2021 16:01-0400 Respiratory rate 16 /min Adrian Roxann [facility] 2021 15:00-0400 Hourly Rounding Adrian Roxann [facility] 2021 15:00-0400 Promise to Return Adrian Roxann [facility] 2021 14:00-0400 Hourly Rounding Adrian Roxann [facility] 2021 14:00-0400 Promise to Return Adrian Roxann [facility] 2021 13:00-0400 Diastolic blood pressure 68 mm[Hg] Adrian Roxnan [facility] 2021 13:00-0400 Heart rate 70 /min Adrian Roxann [facility] 2021 13:00-0400 Systolic blood pressure 118 mm[Hg] Adrian Roxann [facility] 2021 11:03-0400 Body temperature 98.24 [degF] Adrian Roxann [facility] 2021 11:03-0400 Diastolic blood pressure 81 mm[Hg] Adrian Roxann [facility] 2021 11:03-0400 Heart rate 63 /min Adrian Roxann [facility] 2021 11:03-0400 Mean blood pressure 96 mm[Hg] Adrian Roxann [facility] 2021 11:03-0400 SaO2% (BldA) [Mass fraction] 98 % Adrian Roxann [facility] 2021 11:03-0400 Systolic blood pressure 128 mm[Hg] Adrian Roxann [facility] 2021 11:03-0400 Respiratory rate 16 /min Adrian Roxann [facility] 2021 08:30-0400 Body temperature 98.24 [degF] Adrian Roxann [facility] 2021 08:30-0400 Mean blood pressure 92 mm[Hg] Adrian Roxann [facility] 2021 08:30-0400 SaO2% (BldA) [Mass fraction] 98 % Adrian Roxann [facility] 2021 03:44-0400 Mean blood pressure 80 mm[Hg] Adrian Roxann [facility] 2021 03:44-0400 Respiratory rate 16 /min Adrian Roxann [facility] 2021 00:30-0400 Mean blood pressure 77 mm[Hg] Adrian Roxann [facility] 2021 00:30-0400 Respiratory rate 16 /min Adrian Roxann [facility] 12-23-2021 17:45-0400 Heart rate 78 /min Adrian Roxann [facility] 12-23-2021 15:02-0400 Mean blood pressure 104 mm[Hg] Adrian Roxann [facility] 12-23-2021 14:11-0400 gluc 131 mg/dL Adrian Roxann [facility] 12-23-2021 14:11-0400 gluc Adrian Shafferer [facility] 12-23-2021 14:02-0400 Heart rate 94 /min Adrian Shafferer [facility] 12-23-2021 13:13-0400 Blood Pressure Location Terraed Hellerk [facility] 12-23-2021 13:13-0400 Body temperature 98.06 [degF] Terra Jinonk [facility] 12-23-2021 13:13-0400 Diastolic blood pressure 84 mm[Hg] Terra Klonk [facility] 12-23-2021 13:13-0400 Heart rate 85 /min Terra Klonk [facility] 12-23-2021 13:13-0400 SaO2% (BldA) [Mass fraction] 98 % Terra Klonk [facility] 12-23-2021 13:13-0400 Systolic blood pressure 130 mm[Hg] Terra Klonk [facility] 11-12-2021 13:16-0400 Blood Pressure Location Ruperto HERNADEZLE [facility] 11-12-2021 13:16-0400 Body temperature 97.88 [degF] Ruperto KAPLE [facility] 11-12-2021 13:16-0400 Diastolic blood pressure 70 mm[Hg] Ruperto KAPLE [facility] 11-12-2021 13:16-0400 Heart rate 82 /min Ruperto KAPLE [facility] 11-12-2021 13:16-0400 Respiratory rate 18 /min Ruperto KAPLE [facility] 11-12-2021 13:16-0400 SaO2% (BldA) [Mass fraction] 98 % Ruperto KAPLE [facility] 11-12-2021 13:16-0400 Systolic blood pressure 122 mm[Hg] Ruperto KAPLE [facility] 09-30-2021 11:20-0400 Blood Pressure Location Terra Loja [facility] 09-30-2021 11:20-0400 Body temperature 97.7 [degF] Terra Jinonk [facility] 09-30-2021 11:20-0400 Diastolic blood pressure 76 mm[Hg] Terra Loja [facility] 09-30-2021 11:20-0400 Heart rate 87 /min Terra Loja [facility] 09-30-2021 11:20-0400 SaO2% (BldA) [Mass fraction] 98 % Terra Loja [facility] 09-30-2021 11:20-0400 Systolic blood pressure 126 mm[Hg] Terra Loja [facility] Encounters Encounter Date Encounter Type Care Provider Facility Start: 11-25-2024 End: 11-26-2024 Refill Jeffry Lacey PA-C Work Phone: Neurology Comment on above: Refill Request Start: 11-24-2024 End: 11-26-2024 Refill Ruth Melvin APRN.[employer]ER Work Phone: Neurology Comment on above: Refill Request Start: 11-14-2024 End: 11-14-2024 Refill Carmen Cafaro PA-C Work Phone: Neurology Comment on above: Refill Request Start: 11-14-2024 End: 11-15-2024 Refill Carmen Cafaro PA-C Work Phone: Neurology Comment on above: Refill Request Start: 08-01-2024 End: 08-01-2024 Refill Dennys Collier APRN.[employer] Work Phone: Neurology Comment on above: Refill Request Start: 06-29-2024 End: 06-29-2024 Telephone encounter Hay Escalante PA-C Work Phone: Neurology Start: 06-26-2024 End: 06-27-2024 Refill Mary Alice Abarca MD Work Phone: Neurology Comment on above: Refill Request Start: 06-13-2024 End: 06-13-2024 ambulatory [facility] Work Phone: Start: 06-13-2024 End: 06-13-2024 Patient encounter procedure [facility] Work Phone: Start: 05-20-2024 End: 05-21-2024 Refill Dennys Collier [employer] MANAGER.[employer] Work Phone: Neurology Comment on above: Refill Request Start: 05-17-2024 End: 05-17-2024 Refill Jeffry Lacey PA-C Work Phone: Neurology Comment on above: Refill Request Start: 11-20-2023 Refill Dennys alvares [employer]S MANAGER.[employer] Work Phone: Neurology Comment on above: Refill Request Start: 11-20-2023 Refill Dennys alvares B[employer]FUELS MANAGER.[employer]ER Work Phone: Neurology Comment on above: Refill Request Start: 11-17-2023 Refill Dennys alvares B[employer]FUELS MANAGER.[employer] Work Phone: Neurology Comment on above: Refill Request Start: 11-06-2023 Refill Mary Alice heck MD Work Phone: Neurology Comment on above: Refill Request Start: 10-19-2023 ambulatory Chencho López acility:[facility] Start: 10-16-2023 End: 10-16-2023 ambulatory Mary Alice Abarca MD Work Phone: Neurology Comment on above: 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) Start: 10-16-2023 End: 10-16-2023 Telemedicine consultation with patient Mary Alice Abarca MD Work Phone: Neurology Start: 08-16-2023 Telephone encounter Mary Alice Vela MD Work Phone: Neurology Comment on above: Outside Labs Results (LCM) Start: 07-21-2023 End: 07-21-2023 ambulatory Mary Alice Abarca MD Work Phone: Neurology Comment on above: Focal epilepsy (HCC) (Primary Dx) Start: 07-21-2023 End: 07-21-2023 Telemedicine consultation with patient Mary Alice Abarca MD Work Phone: [facility] Start: 05-23-2023 End: 05-23-2023 ambulatory Angela Chaney Rhona B[employer]FUELS MANAGER.[employer]ER Work Phone: Neurology Comment on above: Focal epilepsy (HCC) (Primary Dx) Start: 05-23-2023 End: 05-23-2023 Telemedicine consultation with patient Angela Melgoza [employer]FUELS MANAGER.[employer] Work Phone: [facility] Start: 05-22-2023 Refill Mary Alice heck MD Work Phone: Neurology Comment on above: Refill Request Start: 03-22-2023 Patient encounter procedure Arash Peck MD Work Phone: Neurology Comment on above: Seizure (HCC) (Prima ry Dx) Start: 03-21-2023 Telephone encounter Arash Peck MD Work Phone: Neurology Comment on above: Future Appointment ( [place], Any) Start: 10-05-2022 End: 10-06-2022 ambulatory KIM PERRY Facility:[facility] Start: 09-17-2022 End: 09-17-2022 ambulatory NONE LISTED REQUEST Facility:[facility] Start: 03-09-2022 End: 03-09-2022 Emergency department patient visit DO Matty Ryan Work Phone: [facility] Start: 02-24-2022 End: 03-01-2022 Pre-admission assessment Caro Trujillo [facility] Start: 01-03-2022 End: 01-03-2022 Patient encounter procedure Ruperto CONTRERAS [facility] Start: 12-23-2021 End: 2021 Observation Adrian Hackett [facility] Start: 12-23-2021 End: 12-23-2021 Patient encounter procedure Terra Loja [facility] Start: 11-12-2021 End: 11-12-2021 Patient encounter procedure Ruperto CONTRERAS [facility] Start: 09-30-2021 End: 09-30-2021 Patient encounter procedure Terra Loja [facility] Start: 06-26-2021 End: 09-24-2021 Patient encounter procedure Ruperto CONTRERAS [facility] Procedures Date Procedure Procedure Detail Performing Clinician Start: 06-13-2024 Quick Strep (POC) Start: 03-09-2022 CT of head without contrast DO Matty Ryan Work Phone: Start: 11-22-2018 Arthroscopy of ankle Sc edgardo CONTRERAS Comment on above: LATERAL STABILIZATIO N BRONDASH RIGHT ANKLE, RIGHT ANKLE ARTHROSCOPY EXCISION OSTEROCHONDRAL DEFECT LATERAL STABILIZATIO N BRONDASH RIGHT ANKLE, RIGHT ANKLE ARTHROSCOPY EXCISION OSTEROCHONDRAL DEFECT ear tubes Ruperto CONTRERAS Plan of Treatment Date Care Activity Detail Author Start: 02-10-2025 Influenza vaccination Influenz a Vaccine (Season Ended) [facility] Start: 02-11-2024 Covid-19 Vaccine ( season) Covid-19 Vaccine ( season) [facility] Start: 02-11-2024 Influenza vaccination C [facility] Start: 07-21-2023 End: 10-20-2023 LACOSAMIDE LACOSAMIDE Lab Routine Focal epilepsy (HCC) Expected: 07/21/2023, Expires: 10/20/2023 [facility] Work Phone: Comment on above: Expected: 07/21/2023 , Expires: 10/20/2023 Start: 06-12-2023 Depression Assessment Depression Ass [facility] Start: 02-10-2023 Covid-19 Vaccine ( season) Covid-19 Vaccine ( season) [facility] Start: 02-10-2023 Influenza vaccination Influenza Vacc ine (#1) [facility] Start: 06-12-2022 Depression Assessment Depression Ass [facility] Start: 03-09-2022 Measurement of substance [facility] Start: 12-23-2010 Hepatitis B Vaccine (1 of 3 - 19+ 3-dose series) Hepatitis B Vaccine (1 of 3 - 19+ 3-dose series) [facility] Start: 12-23-2010 Urine microalbumin profile DTaP,Tdap,Td Vaccine (1 - Tdap) [facility] Start: 12-23-2009 Anxiety Screening Anxiety Screening [facility] Start: 12-23-2009 [facility] Start: 12-23-2009 Hepatitis C Screening Hepatitis C [facility] Start: 12-23-2009 Hepatitis C screening Hepatitis C [facility] Start: 12-23-2009 HIV Screening HIV Screening [facility] Start: 12-23-2009 HIV screening HIV Screening [facility] Start: 06-25-1992 Covid-19 Vaccine (#1) Covid-19 Vacci ne (#1) [facility] Start: 1991 Hepatitis B Vaccine (1 of 3 - 3-dose series) Hepatitis B Vaccine (1 of 3 - 3-dose series) [facility] End: 03-23-2024 EPIL EEG LEAD PLACEMENT EPIL EEG LEAD PLACEMENT NEUROLOGY Routine Seizure (HCC) 1 Occurrences starting 03/23/2023 until 03/23/2024 [facility] Work Phone: Comment on above: 1 Occurrences starti ng 03/23/2023 until 03/23/2024 EPIL VEEG ADMIT TO EMU/PMU EPIL VEEG ADMIT TO EMU/PMU NEUROLOGY Routine Seizure (HCC) Ordered: 03/23/2023 [facility] Work Phone: Comment on above: Ordered: 03/23/2023 Measurement of substance Fir [facility] Work Phone: Patient Education Epilepsy in Adults [facility] Work Phone: Patient referral [facility] Work Phone: [facility] Immunizations Immunization Date Immunization Notes Care Provider Nella magdaleno 02-28-1996 DTaP, unspecified formulation Ruperto KAPLE [facility] 02-28-1996 measles, mumps and rubella virus vaccine Ruperto KAPLE [facility] 04-07-1993 DTaP, unspecified formulation Ruperto KAPLE [facility] 04-07-1993 Hib, unspecified formulation Ruperto KAPLE [facility] 04-07-1993 measles, mumps and rubella virus vaccine Ruperto KAPLE [facility] 07-01-1992 Hib, unspecified formulation Ruperto KAPLE [facility] 04-24-1992 Hib, unspecified formulation Ruperto KAPLE [facility] 02-28-1992 Hib, unspecified formulation Ruperto KAPLE [facility] Payers Date Payer Category Payer Self-pay [id number] 2021 Medicaid [id number] 1991 Unknown [id number] 1991 Unknown [id number] 1959 Unknown [id number] Medicaid [id number] Unknown [id number] Unknown [employer] BC/BS [id number] Social History Date Type Detail Facility Start: 11-11-2020 End: 09-30-2021 Tobacco smoking status Heavy tobacco smoker (finding) [facility] Tobacco smoking status Never [facility] Start: 05-22-2023 End: 10-16-2023 Sex Assigned At Male [facility] Start: 03-09-2022 End: 03-09-2022 Tobacco smoking status Smoker (finding) [facility] Tobacco [facility] Comment on above: pt states 2 packs pe r week 2 PACK PER WEEK-SMOK ES AT WORK Start: 1990 Sex Assigned At Male Mar[facility] Start: 04-21-2023 [facility] Start: 03-21-2023 Gender identity Identifies as male gender (finding) [facility] Start: 03-21-2023 Sexual orientation Heterosexual (cuba judd) [facility] Start: 05-22-2023 End: 10-16-2023 History of Social function [facility] Start: 06-13-2024 Sex Male (finding) [facility] Functional Status Date Assessment Result Facility 04-23-2023 Are you deaf, or do you have serious difficulty hearing No 04/23/2023 5:44 PM Deyanira Chris, JASON No [facility] 04-23-2023 Are you blind, or do you have serious difficulty seeing, even when wearing glasses No 04/23/2023 5:44 PM Deyanira Chris, JASON No [facility] 04-23-2023 Do you have serious difficulty walking or climbing stairs No 04/23/2023 5:44 PM Deyanira Chris, JASON No [facility] 04-23-2023 Do you have difficul ty dressing or bathing No 04/23/2023 5:44 PM Deyanira Chris, JASON No [facility] 04-23-2023 Because of a physica l, mental, or emotional condition, do you have difficulty doing errands alone such as visiting a physician's office or shopping No 04/23/2023 5:44 PM Deyanira Chris, JASON No [facility] 01-03-2022 Functional Status N/A [facility] 12-23-2021 Functional Status N/A [facility] 12-23-2021 Functional Status N/A [facility] [place] Mental Status Date Assessment Result Facility 04-23-2023 Because of a physica l, mental, or emotional condition, do you have serious difficulty concentrating, remembering, or making decisions No 04/23/2023 5:44 PM Deyanira Chris, JASON No [facility] Clinical Notes 09-29-2020 to 11-26-2024 Telephone Encounter - Angelika Adm Asst, Amanda - 11/26/2024 3:57 PM EDTTelephone Encounter - Angelika Adm Asst, Amanda - 11/26/2024 3:57 PM Mary Alice Campos MD - 10/16/2023 10:00 AM EDT Note Date & Type Note Facility 11-26-2024 Telephone encounter Note Request declined - Refills still showing active and available at local pharmacy. [facility] 11-26-2024 Miscellaneous Notes Request declined - Refills still showing active and available at local pharmacy. documented in this encounter [facility] 11-26-2024 Telephone encounter Note [facility] following approved medication requests have been transmitted electronically. Requested Prescriptions Signed Prescriptions Disp Refills lacosamide (VIMPAT) 200 mg 180 tablet 0 Sig: Take 1 tablet by mouth every 12 hours for 90 days. Need appointment for further refills. Authorizing Provider: RUTH MELVIN APRN.CNP [facility] 11-26-2024 Miscellaneous Notes The following approved medication requests have been transmitted electronically. Requested Prescriptions Signed Prescriptions Disp Refills lacosamide (VIMPAT) 200 mg 180 tablet 0 Sig: Take 1 tablet by mouth every 12 hours for 90 days. Need appointment for further refills. Authorizing Provider: RUTH MELVIN APRN.CNP Prescription Refill: Requested by: pharmacy Please E-Scribe Caller Contact Number: escript Pharmacy Name: [place], [place] Pharmacy Number: [phone] Generic/ brand: generic 30 or 90 day supply requested: 90 Last appointment: 10/16/2023 Next Appointment: No follow-up scheduled. Appointment needed - sent to S51 Schedulers Patient of Dr. Dianna Centeno [id number] [address] [place] [id number] documented in this encounter [facility] 11-26-2024 Telephone encounter Note Prescription Refill: Requested by: pharmacy Please E-Scribe Caller Contact Number: nona [facility] [place] Pharm[facility] Number: [phone] Generic/ brand: generic 30 or 90 day supply requested: 90 Last appointment: 10/16/2023 Next Appointment: No follow-up scheduled. Appointment needed - sent to S51 Schedulers Patient of Dr. Dianna Centeno [id number] [address] [facility] [address] [facility] 11-14-2024 Telephone encounter Note PDMP website checked and validated. All prescriptions have been APPROPRIATELY filled. No suspicious activity was identified. 11/14/2024 by Connor Marion APRN.CNP The following approved medication requests have been transmitted electronically. Requested Prescriptions Signed Prescriptions Disp Refills cloBAZam (ONFI) 10 mg tab tablet 90 tablet 1 Sig: Take 1 tablet by mouth daily at bedtime for 180 days. Authorizing Provider: CONNOR MARION APRN.CNP [facility] 11-14-2024 Miscellaneous Notes PDMP website checked and validated. All prescriptions have been APPROPRIATELY filled. No suspicious activity was identified. 11/14/2024 by Connor Marion APRN.CNP The following approved medication requests have been transmitted electronically. Requested Prescriptions Signed Prescriptions Disp Refills cloBAZam (ONFI) 10 mg tab tablet 90 tablet 1 Sig: Take 1 tablet by mouth daily at bedtime for 180 days. Authorizing Provider: CONNOR MARION APRN.CNP documented in this encounter [facility] 08-01-2024 Telephone encounter Note The following approved medication requests have been transmitted electronically. Requested Prescriptions Signed Prescriptions Disp Refills divalproex ER (DEPAKOTE ER) 250 mg 24 hr tablet 180 tablet 1 Sig: Take 1 tablet by mouth two times a day. Authorizing Provider: ALEX SALINAS PA-C [facility] 08-01-2024 Miscellaneous Notes The following approved medication requests have been transmitted electronically. Requested Prescriptions Signed Prescriptions Disp Refills divalproex ER (DEPAKOTE ER) 250 mg 24 hr tablet 180 tablet 1 Sig: Take 1 tablet by mouth two times a day. Authorizing Provider: ALEX SALINAS PA-C Prescription Refill: Requested by: pharmacy Please E-Scribe Caller Contact Number: Pharmacy Name: [facility] Pharmacy Number: [phone] Generic/ brand: 30 or 90 day supply requested: 90 Last appointment: 10/16/23 Next Appointment: none Patient of Dr. Bustamante documented in this encounter [facility] 08-01-2024 Telephone encounter Note Prescription Refill: Requested by: pharmacy Please E-Scribe Caller Contact Number: Pharmacy Name: [facility] Pharmacy Number: [phone] Generic/ brand: 30 or 90 day supply requested: 90 Last appointment: 10/16/23 Next Appointment: none Patient of Dr. Bustamante [facility] 06-29-2024 Telephone encounter Note Patient requesting refill of Depakote 500 mg EC tablet, still has 250 mg ER tablet. The following approved medication requests have been transmitted electronically. Requested Prescriptions Signed Prescriptions Disp Refills divalproex DR (DEPAKOTE) 500 mg EC tablet 60 tablet 5 Sig: Take 1 tablet by mouth two times a day. Authorizing Provider: HAY ESCALANTE PA-C June 29, 2024 1:56 PM [facility] 06-29-2024 Miscellaneous Notes Patient requesting refill of Depakote 500 mg EC tablet, still has 250 mg ER tablet. The following approved medication requests have been transmitted electronically. Requested Prescriptions Signed Prescriptions Disp Refills divalproex DR (DEPAKOTE) 500 mg EC tablet 60 tablet 5 Sig: Take 1 tablet by mouth two times a day. Authorizing Provider: HAY ESCALANTE PA-C June 29, 2024 1:56 PM documented in this encounter [facility] 05-21-2024 Telephone encounter Note The following approved medication requests have been transmitted electronically. Requested Prescriptions Signed Prescriptions Disp Refills cloBAZam (ONFI) 10 mg tab tablet 90 tablet 1 Sig: Take 1 tablet by mouth daily at bedtime for 180 days. Authorizing Provider: CARMEN ALVAREZ divalproex ER (DEPAKOTE ER) 250 mg 24 hr tablet 180 tablet 1 Sig: Take 1 tablet by mouth two times a day. Authorizing Provider: CARMEN ALVAREZ PA-C [facility] 05-21-2024 Miscellaneous Notes The following approved medication requests have been transmitted electronically. Requested Prescriptions Signed Prescriptions Disp Refills cloBAZam (ONFI) 10 mg tab tablet 90 tablet 1 Sig: Take 1 tablet by mouth daily at bedtime for 180 days. Authorizing Provider: CARMEN ALVAREZ divalproex ER (DEPAKOTE ER) 250 mg 24 hr tablet 180 tablet 1 Sig: Take 1 tablet by mouth two times a day. Authorizing Provider: CARMEN ALVAREZ PA-C Prescription Refill: Requested by: pharmacy Please E-Scribe Caller Contact Number: Pharmacy Name: [facility] Pharmacy Number: [phone] Generic/ brand: 30 or 90 day supply requested: 90 Last appointment: 10/16/23 Next Appointment: none Patient of Dr. Bustamante documented in this encounter [facility] 05-21-2024 Telephone encounter Note Prescription Refill: Requested by: pharmacy Please E-Scribe Caller Contact Number: Pharmacy Name: [facility] Pharmacy Number: [phone] Generic/ brand: 30 or 90 day supply requested: 90 Last appointment: 10/16/23 Next Appointment: none Patient of Dr. Bustamante [facility] 05-17-2024 Telephone encounter Note The following approved medication requests have been transmitted electronically. Requested Prescriptions Signed Prescriptions Disp Refills lacosamide (VIMPAT) 200 mg 180 tablet 1 Sig: Take 1 tablet by mouth two times a day for 180 days. Authorizing Provider: RUTH MELVIN APRN.CNP [facility] 05-17-2024 Miscellaneous Notes The following approved medication requests have been transmitted electronically. Requested Prescriptions Signed Prescriptions Disp Refills lacosamide (VIMPAT) 200 mg 180 tablet 1 Sig: Take 1 tablet by mouth two times a day for 180 days. Authorizing Provider: RUTH MELVIN APRN.CNP Prescription Refill: Requested by: pharmacy Please E-Scribe Caller Contact Number: Pharmacy Name: [facility] Pharmacy Number: [phone] Generic/ brand: 30 or 90 day supply requested: 90 Last appointment: 10/16/23 Next Appointment: none Patient of Dr. Bustamante documented in this encounter [facility] 05-17-2024 Telephone encounter Note Prescription Refill: Requested by: pharmacy Please E-Scribe Caller Contact Number: Pharmacy Name: [facility] Pharmacy Number: [phone] Generic/ brand: 30 or 90 day supply requested: 90 Last appointment: 10/16/23 Next Appointment: none Patient of Dr. Bustamante [facility] 11-20-2023 Telephone encounter Note The following approved medication requests have been transmitted electronically. Requested Prescriptions Refused Prescriptions Disp Refills cloBAZam (ONFI) 10 mg tab tablet 90 tablet 1 Sig: Take 1 tablet by mouth daily at bedtime for 180 days. Refused By: DENNYS COLLIER Reason for Refusal: A Refill not appropriate lacosamide (VIMPAT) 200 mg 180 tablet 1 Si tablet by ORAL/FEEDING TUBE route two times a day for 180 days. Refused By: DENNYS COLLIER Reason for Refusal: A Refill not appropriate Dennys Collier APRN.CNP [facility] 11-20-2023 Miscellaneous Notes The following approved medication requests have been transmitted electronically. Requested Prescriptions Refused Prescriptions Disp Refills cloBAZam (ONFI) 10 mg tab tablet 90 tablet 1 Sig: Take 1 tablet by mouth daily at bedtime for 180 days. Refused By: DENNYS COLLIER Reason for Refusal: A Refill not appropriate lacosamide (VIMPAT) 200 mg 180 tablet 1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 from 30 seconds to 2 minutes. Usually, they are not harmful unless they last a long time. Do not eat or drink anything that may keep your medicine from working, such as alcohol. Teach friends and family what to do when you have a seizure. Contact your doctor each time you have a seizure. This information is not intended to replace advice given to you by your health care provider. Make sure you discuss any questions you have with your health care provider. Document Released: 11/14/2008 Document Revised: 08/16/2019 Document Reviewed: 08/16/2019 [employer] Patient Education 2019 [employer]. 01/03/2022 13:55:47 Epilepsy, Mkdh-gq-Wxrn Epilepsy Epilepsy is when a person keeps having seizures. A seizure is a burst of abnormal activity in the brain. A seizure can change how you think or behave, and it can make it hard to be aware of what is happening. This condition can cause problems such as: Falls, accidents, and injury. Sadness (depression). Poor memory. Sudden unexplained in epilepsy (SUDEP). This is rare. Its cause is not known. Most people with epilepsy lead normal lives. What are the causes? This condition may be caused by: A head injury. An injury that happens at . A high fever during childhood. A stroke. Bleeding that goes into or around the brain. Certain medicines and drugs. Having too little oxygen for a long period of time. Abnormal brain development. Certain infections. Brain tumors. Conditions that are passed from parent to child (are hereditary). What are the signs or symptoms? Symptoms of a seizure vary from person to person. They may include: Jerky movements of muscles (convulsions). Stiffening of the body. Movements of the arms or legs that you are not able to control. Passing out (loss of consciousness). Breathing problems. Sudden falls. Confusion. Head nodding. Eye blinking or twitching. Lip smacking. Drooling. Fast eye movements. Grunting. Not being able to control when you pee or poop. Staring. Being hard to wake up (unresponsiveness). Some people have symptoms right before a seizure happens (aura) and right after a seizure happens. These symptoms include: Fear or anxiety. Feeling sick to your stomach (nauseous). Feeling like the room is spinning (vertigo). A feeling of having seen or heard something before (ramandeep pandya). Odd tastes or smells. Changes in how you see (vision), such as seeing flashing lights or spots. Symptoms that follow a seizure include: Being confused. Being sleepy. Having a headache. How is this treated? Treatment can control seizures. Treatment for this condition may involve: Taking medicines to control seizures. Having a device (vagus nerve stimulator) put in the chest. The device sends signals to a nerve and to the brain to prevent seizures. Brain surgery to stop seizures from happening or to reduce how often they happen. Having blood tests often to make sure you are getting the right amount of medicine. Once this condition has been diagnosed, it is important to start treatment as soon as possible. For some people, epilepsy goes away in time. Others will need treatment for the rest of their life. Follow these instructions at home: Medicines Take zciw-rdr-bdwskaj and prescription medicines only as told by your doctor. Avoid anything that may keep your medicine from working, such as alcohol. Activity Get enough rest. Lack of sleep can make seizures more likely to occur. Follow your doctor's advice about driving, swimming, and doing anything else that would be dangerous if you had a seizure. ?If you live in the [place] check with your local DMV (department of [employer]) to find out about local driving laws. Each state has rules about when you can return to driving. Teaching others Teach friends and family what to do if you have a seizure. They should: Lay you on the ground to prevent a fall. Cushion your head and body. Loosen any tight clothing around your neck. Turn you on your side. Stay with you until you are better. Not hold you down. Not put anything in your mouth. Know whether or not you need emergency care. General instructions Avoid anything that causes you to have seizures. Keep a seizure diary. Write down what you remember about each seizure. Be sure to include what might have caused it. Keep all follow-up visits as told by your doctor. This is important. Contact a doctor if: You have a change in how often or when you have seizures. You get an infection or start to feel sick. You may have more seizures when you are sick. Get help right away if: A seizure does not stop after 5 minutes. You have more than one seizure in a row, and you do not have enough time between the seizures to feel better. A seizure makes it harder to breathe. A seizure is different from other seizures you have had. A seizure makes you unable to speak or use a part of your body. You did not wake up right after a seizure. These symptoms may be an emergency. Do not wait to see if the symptoms will go away. Get medical help right away. Call your local emergency services (911 in the [place] Do not drive yourself to the hospital. Summary Epilepsy is when a person keeps having seizures. A seizure is a burst of abnormal activity in the brain. Treatment can control seizures. Teach friends and family what to do if you have a seizure. This information is not intended to replace advice given to you by your health care provider. Make sure you discuss any questions you have with your health care provider. Document Released: 03/26/2010 Document Revised: 01/21/2019 Document Reviewed: 01/21/2019 [employer] Patient Education 2020 [employer]. Follow Up Care 12/27/2021 09:57:43 With:NATANAEL VIGILFP, Ruperto Xie, FAM, PED Address: [address], [facility] [place] [address]- When:Within 6 Month(s) [facility] 2021 Evaluation + Plan note Extrac bruce from: Title:Discharge Note Author:RENETTA MALDONADOP-BCYudy nee Date:12/24/21 Hemodynamically stable condi tion Discharge To, Anticipated II - Home independently Discharged to - Home independently Discharge Status: Improved Discharge Instructions Given: To patient Discharge disposition: Home Prescriptions reviewed with Patient 49 minutes spent in discharge time with patient, collaborating MD, nursing staff, CRM Discharge Diet(s): Regular, Fat Modified- Low cholesterol, Low Sodium- 2000 mg (12/24/21 09:55:00) Prescriptions allopurinol 300 mg Tab, 150 mg= 0.5 tab(s), Oral, Daily, 3 refills levetiracetam 500 mg Tab, 500 mg= 1 tab(s), Oral, BID Home No active home medications With When Contact Information Ruperto CONTRERAS 12/31/2021 01:20 PM EDT Amarilys Austinlashonda Johnsonserafin, [facility] [place] [address]- Business (1) Additional Instructions: David CAMACHO, ROSALIE Newsome Within 2 to 4 weeks [facility] [address] [place] [address]- Additional Instructions: Seizure, Adult Extracted from: Title:Consult Note-neurology Author:Zeferino Bowens RN carlos Date:12/24/21 The patient is a 31-year-old right-handed white male with a history of Tobacco use who who was admitted to the hospital for Recurrent episodes of tonic-clonic type movement from sleep associated with tongue laceration. 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 The patient did have an MRI to assess for a structural brain lesion contributed dating to a focal seizure disorder Which to my interpretation is normal. Given the high morbidity and mortality associated with seizure disorder the patient is admitted to the hospital for further workup and evaluation and neurological assessment. -I have reviewed the MRI scan of the brain with and without contrast to assess for a structural lesion which may predispose the patient to a focal seizure -I have reviewed the available blood work to assess for a metabolic process which may have contributed to the patient's clinical episode and will consider further labs based on these results -I Have reviewed the EEG Which reveals epileptiform activity In the left temporal leads which may have contributed to the patient's clinical symptoms -I recommend starting Keppra 500 mg by mouth twice a day for seizure prevention -I counseled the patient and his family on the side effects and interactions of this medication -I counseled the patient on seizure precautions at length. Including no driving. -I counseled the patient on the possible diagnosis, prognosis, evaluation, and treatment options. I answered all questions. The patient states understanding. -I recommend the patient follow-up in outpatient adult neurology clinic for further recommendations and evaluation -I discussed the case with the hospitalist Selena Longo NP 1. Seizure (R56.9: Unspecified convulsions) 2. Leukocytosis (D72.829: Elevated white blood cell count, unspecified) 3. Smoker (F17.200: Nicotine dependence, unspecified, uncomplicated) 4. Marijuana use (F12.90: Cannabis use, unspecified, uncomplicated) 5. ADHD (F90.9: Attention-deficit hyperactivity disorder, unspecified type) 6. Familial hypercholesteremia (E78.01: Familial hypercholesterolemia) 7. Gout (M10.9: Gout, unspecified) 8. Obesity (E66.9: Obesity, unspecified) 9. DVT prophylaxis (Z29.9: Encounter for prophylactic measures, unspecified) Elevated uric acid in blood (E79.0: Hyperuricemia without signs of inflammatory arthritis and tophaceous disease) Gout of left foot (M1A.0720: Idiopathic chronic gout, left ankle and foot, without tophus (tophi)) Left foot pain (M79.672: Pain in left foot) Right foot pain (M79.671: Pain in right foot) Extracted from: Title:Admission H & P Author:Tej MAYS enee Date:12/23/21 1. Seizure (R56.9: Unspecifi ed convulsions) New onset -> 1st seizure 12/22, 2nd seizure today - both witnessed by -> described as tonic/clonic movement, tongue biting, eyes rolling back, staring spell, -Unknown causation: ? drug use -CT of brain: No acute process -Consult neuro - per ED, MRI, EEG, keppra load, will see in a.m. -Keppra 500mg BID -IV ativan prn -MRI - pending -EEG - pending -Seizure precautions -No driving until seen by neuro and/or PCP in outpatient f/u 2. Leukocytosis (D72.829: Elevated white blood cell count, unspecified) In the setting of seizure -Denies resp. symptoms -UA - pending 3. Smoker (F17.200: Nicotine dependence, unspecified, uncomplicated) Educated on smoking cessation -Nicotine patch if needed 4. Marijuana use (F12.90: Cannabis use, unspecified, uncomplicated) Pt. states use 2/2 ADHD as he is intolerant to meds -UDS - pending -Educated on need for cessation to which pt. has no intentions to do 5. ADHD (F90.9: Attention-deficit hyperactivity disorder, unspecified type) See above 6. Familial hypercholesteremia (E78.01: Familial hypercholesterolemia) -Diet controlled 7. Gout (M10.9: Gout, unspecified) -Allopurinol 8. Obesity (E66.9: Obesity, unspecified) BMI 34 -Educated on need for lifestyle modifications with goal of weight loss as obesity has a negative impact on co-morbid conditions. 9. DVT prophylaxis (Z29.9: Encounter for prophylactic measures, unspecified) -Heparin sq with early ambulation Orders: acetaminophen, 650 mg = 2 tab(s), Tab, Oral, q6hr PRN Pain, Routine, Start date 12/23/21 14:59:00 EDT, 12/23/21 14:59:00 EDT heparin, 5,000 unit(s) = 1 mL, Injection, SubCutaneous, BID for 30 day(s), Stop date 01/22/22 20:59:00 EDT, Routine, Start date 12/23/21 21:00:00 EDT, 12/23/21 14:59:00 EDT levetiracetam, 500 mg = 2 tab(s), Tab, Oral, q12hr, Stop date 01/22/22 4:00:00 EDT, Routine, Start date 12/23/21 16:00:00 EDT, 12/23/21 15:08:00 EDT lorazepam, 1 mg = 0.5 mL, Injection, IV Push, Once PRN Seizure, Start date 12/23/21 15:00:00 EDT, 12/23/21 15:00:00 EDT ondansetron, 4 mg = 2 mL, Injection, IV Push, q6hr PRN Nausea, Routine, Start date 12/23/21 14:59:00 EDT, 12/23/21 14:59:00 EDT Ambulate with Assistance Basic Metabolic Panel Below the Knee Intermittent Pneumatic Compression Device Cardiac Monitoring Drug Screen Urine Elevate Head of Bed Evaluate Need For Continued Telemetry Intake and Output Magnesium Level Notify Provider Vital Signs Notify Provider Vital Signs Pad Siderails Precautions Pulse Oximetry Regular Diet Resuscitation Status - Full TSH With T4fr Reflex UA With Cult Reflex Vital Signs Weight -Plan discussed w/ patient, nursing staff and CRM. -Disposition: Patient will likely be less than 2 midnight stays for treatment of above. This report was transcribed using voice recognition software. Every effort was made to ensure accuracy, however, inadvertently computerized marsh buggy operator mistakes may be present. Extracted from: Title:ED Note Author:Marcell Zamorano DO Date:12/10 10/01 Seizure (R56.9: Unspecified convulsions) Orders: levetiracetam + Sodium Chloride 0.9% intravenous solution 100 mL, 1,000 mg = 100 mL, Soln-IV, IV Piggyback, Once, Stop date 12/23/21 14:23:00 EDT, STAT, Start date 12/23/21 14:23:00 EDT, 400 mL/hr, Infuse over 15 minute(s), 12/23/21 14:23:00 EDT ED Physician consult Hospitalist for continued care MRI Brain w/ + w/o Contrast Saline Lock Insert Future Appointments Appointment Date:12/30/2021 01:20:00 PM Scheduled Provider:Terra Loja NP Location:[facility] Appointment Type: ER/Hospital Follow Up Future Scheduled Tests Laboratory* Basic Metabolic Panel 11/13/21 * CBC w/ Auto Diff 11/13/21 * Hepatic Function Panel 11/13/21 * Uric Acid 11/18/21 [facility]07-15-2022 Hospital Discharge instructions Patient Education 2021 10:00:47 Seizure, Adult Seizure, Adult A seizure is a sudden burst of abnormal electrical activity in the brain. Seizures usually last from 30 seconds to 2 minutes. The abnormal activity temporarily interrupts normal brain function. A seizure can cause many different symptoms depending on where in the brain it starts. What are the causes? Common causes of this condition include: Fever or infection. Brain abnormality, injury, bleeding, or tumor. Low blood sugar. Metabolic disorders or other conditions that are passed from parent to child (are inherited). Reaction to a substance, such as a drug or a medicine, or suddenly stopping the use of a substance (withdrawal). Stroke. Developmental disorders such as autism or cerebral palsy. In some cases, the cause of this condition may not be known. Some people who have a seizure never have another one. Seizures usually do not cause brain damage or permanent problems unless they are prolonged. A person who has repeated seizures over time without a clear cause has a condition called ep ilepsy. What increases the risk? You are more likely to develop this condition if you have: A family history of epilepsy. Had a tonic-clonic seizure in the past. This is a type of seizure that involves whole-body contraction of muscles and a loss of consciousness. Autism, cerebral palsy, or other brain disorders. A history of head trauma, lack of oxygen at , or strokes. What are the signs or symptoms? There are many different types of seizures. The symptoms of a seizure vary depending on the type ofseizure you have. Examples of symptoms during a seizure include: Uncontrollable shaking (convulsions). Stiffening of the body. Loss of consciousness. Head nodding. Staring. Not responding to sound or touch. Loss of bladder or bowel control. Some people have symptoms right before a seizure happens (aura) and right after a seizure happens (postictal). Symptoms before a seizure may include: Fear or anxiety. Nausea. Feeling like the room is spinning (vertigo). A feeling of having seen or heard something before (d dorothy vu). Odd tastes or smells. Changes in vision, such as seeing flashing lights or spots. Symptoms after a seizure may include: Confusion. Sleepiness. Headache. Weakness on one side of the body. How is this diagnosed? This condition may be diagnosed based on: A description of your symptoms. Video of your seizures can be helpful. Your medical history. A physical exam. You may also have tests, including: Blood tests. CT scan. MRI. Electroencephalogram (EEG). This test measures electrical activity in the brain. An EEG can predictwhether seizures will return (recur). A spinal tap (also called a lumbar puncture). This is the removal and testing of fluid that surrounds the brain and spinal cord. How is this treated? Most seizures will stop on their own in under 5 minutes, and no treatment is needed. Seizures that last longer than 5 minutes will usually need treatment. Treatment can include: Medicines given through an IV. Avoiding known triggers, such as medicines that you take for another condition. Medicines to treat epilepsy (antiepileptics), if epilepsy caused your seizures. Surgery to stop seizures, if you have epilepsy that does not respond to medicines. Follow these instructions at home: Medicines Take rmjy-zgo-wemthgb and prescription medicines only as told by your health care provider. Avoid any substances that may prevent your medicine from working properly, such as alcohol. Activity Do not drive, swim, or do any other activities that would be dangerous if you had another seizure. Wait until your health care provider says it is safe to do them. If you live in the [place] check with your local DMV (department of motor vehicles) to find out aboutlocal driving laws. Each state has specific rules about when you can legally return to driving. Get enough rest. Lack of sleep can make seizures more likely to occur. Educating others Teach friends and family what to do if you have a seizure. They should: Lay you on the ground to prevent a fall. Cushion your head and body. Loosen any tight clothing around your neck. Turn you on your side. If vomiting occurs, this helps keep your airway clear. Not hold you down. Holding you down will not stop the seizure. Not put anything into your mouth. Know whether or not you need emergency care. For example, they should get help right away if you have a seizure that lasts longer than 5 minutes or have several seizures in a row. Stay with you until you recover. General instructions Contact your health care provider each time you have a seizure. Avoid anything that has ever triggered a seizure for you. Keep a seizure diary. Record what you remember about each seizure, especially anything that might have triggered the seizure. Keep all follow-up visits as told by your health care provider. This is important. Contact a health care provider if: You have another seizure. You have seizures more often. Your seizure symptoms change. You continue to have seizures with treatment. You have symptoms of an infection or illness. This might increase your risk of having a seizure. Get help right away if: You have a seizure that: ?Lasts longer than 5 minutes. ?Is different than previous seizures. ?Leaves you unable to speak or use a part of your body. ?Makes it harder to breathe. You have: ?A seizure after a head injury. ?Multiple seizures in a row. ?Confusion or a severe headache right after a seizure. You do not wake up immediately after a seizure. You injure yourself during a seizure. These symptoms may represent a serious problem that is an emergency. Do not wait to see if the symptoms will go away. Get medical help right away. Call your local emergency services (911 in the [place] Do not drive yourself to the hospital. Summary Seizures are caused by abnormal electrical activity in the brain. The activity disrupts normal brain function and can cause various symptoms, such as convulsions, abnormal movements, or a change in consciousness. There are many causes of seizures, including illnesses, medicines, genetic conditions, head injuries, strokes, tumors, substance abuse, or substance withdrawal. Most seizures will stop on their own in under 5 minutes. Seizures that last longer than 5 minutes are a medical emergency and require immediate treatment. Many medicines are used to treat seizures. Take xhkw-gtc-mwismmq and prescription medicines only astold by your health care provider. This information is not intended to replace advice given to you by your health care provider. Make sure you discuss any questions you have with your health care provider. Document Released: 05/26/2001 Document Revised: 08/16/2019 Document Reviewed: 08/16/2019 [employer] Patient Education 2020 [employer]. Follow Up Care 12/23/2021 13:58:24 With:Jerod Hernandez MD, NEU Address: [facility] [address] [place] [address]- When:12/29/2021 09:00:00 With:Ruperto CONTRERAS Address: [address], [place] [address]- Business (1) When:12/31/2021 13:20:00 [facility]06-04-2022 Evaluation + Plan note Future Scheduled Tests Laboratory* Basic Metabolic Panel 11/13/21 * CBC w/ Auto Diff 11/13/21 * Hepatic Function Panel 11/13/21 * Uric Acid 11/18/21 [facility] 06-03-2022 Hospital Discharge instructions Patient Education 11/12/2021 14:09:00 Acute Pain, Adult Acute Pain, Adult Acute pain is a type of sudden pain that may last for just a few days or for as long as six months.It is often related to an illness, injury, or medical procedure. Acute pain may be mild, moderate, or severe. Pain can make it hard for you to do your normal, daily activities. It can cause anxiety and lead toother problems if it is left untreated. Treatment depends on the cause and severity of your pain. Acute pain usually goes away once your injury has healed or you are no longer ill. Follow these instructions at home: Medicines Take opvf-sbo-soekwwp and prescription medicines only as told by your health care provider. Take the lowest dose of medicine for the shortest amount of time needed to relieve the pain. If you are taking prescription pain medicine: ?Do not stop taking the medicine suddenly. Talk to your health care provider about how and when to discontinue prescription medicine. ?Do not take more pills than told by your health care provider even if your pain is severe. ?Do not take other zxuk-hbb-fycqhva pain medicines in addition to prescription pain medicine unlesstold by your health care provider. ?Ask your health care provider if the medicine requires you to avoid driving or using heavy machinery. ?Ask your health care provider if the medicine can cause constipation. You may need to take these actions to prevent or treat constipation: ?Drink enough fluid to keep your urine pale yellow. ?Eat foods that are high in fiber, such as beans, whole grains, and fresh fruits and vegetables. ?Take jvcj-uij-xaxkiap or prescription medicines. ?Limit foods that are high in fat and processed sugars, such as fried or sweet foods. Managing pain, stiffness, and swelling If directed, put ice on the affected area. To do this: Put ice in a plastic bag. Place a towel between your skin and the bag. Leave the ice on for 20 minutes, 2 3 times a day. If directed, apply heat to the affected area as often as told by your health care provider. Use theheat source that your health care provider recommends, such as a moist heat pack or a heating pad. Place a towel between your skin and the heat source. Leave the heat on for 20 30 minutes. Remove the heat if your skin turns bright red. This is especially important if you are unable to feel pain, heat, or cold. You may have a greater risk of getting burned. Activity Rest as told by your health care provider. Return to your normal activities as told by your health care provider. Ask your health care provider what activities are safe for you. General instructions Check your pain level as told by your health care provider. Ask your health care provider if other strategies such as distraction, relaxation, or physical therapies can help your pain. Keep all follow-up visits as told by your health care provider. This is important. Contact a health care provider if: Your pain is not controlled by medicine. Your pain does not improve or gets worse. You have side effects from pain medicines, such as vomiting or confusion. Get help right away if you: Have severe pain. Have trouble breathing. Lose consciousness. Have chest pain or pressure that lasts for more than a few minutes, or if you have other symptoms along with chest pain, including if you: ?Have pain or discomfort in one or both arms, your back, neck, jaw, or stomach. ?Have shortness of breath. ?Break out in a cold sweat. ?Feel nauseous. ?Become light-headed. These symptoms may represent a serious problem that is an emergency. Do not wait to see if the symptoms will go away. Get medical help right away. Call your local emergency services (911 in the [place] Do not drive yourself to the hospital. Summary Acute pain may be mild, moderate, or severe. It usually goes away once your injury has healed or you are no longer ill. Take yivx-vel-baurrjw and prescription medicines only as told by your health care provider. Ask your health care provider if the medicine prescribed to you can cause constipation. Contact a health care provider if your pain is not controlled by medicine. This information is not intended to replace advice given to you by your health care provider. Make sure you discuss any questions you have with your health care provider. Document Released: 06/12/2016 Document Revised: 10/14/2019 Document Reviewed: 10/14/2019 [employer] Patient Education 2020 [employer]. Follow Up Care 11/12/2021 11:20:32 With:Ruperto CONTRERAS DO, FAAFP, FAM, PED Address: [facility] [place] [address]- When:Within 1 Month(s) With:Ruperto CONTRERAS DO, FAAFP, FAM, PED Address: [address] [place] [address]- When:Within 3 Month(s) [facility] 04-20-2021 Evaluation + Plan note Future Scheduled Tests Laboratory* Glucose Fasting 09/29/20 * Lipid Panel 09/29/20 [facility] Future Appointments Appointment Date:06/14/2022 12:40:00 PM Scheduled Provider:Ruperto CONTRERAS DO, FAAFP Location:[facility] Appointment Type: Open Future Scheduled Tests Laboratory* Basic Metabolic Panel 11/13/21 * CBC w/ Auto Diff 11/13/21 * Hepatic Function Panel 11/13/21 * Uric Acid 11/18/21 [facility] Evaluation noteNo assessment information available [facility] Work Phone: Evaluation note* Diagnosis Seizure (HCC)- Primary Other [facility] 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) Localization-related (focal) (partial) epilepsy and epileptic syndromes with simple partial seizures, without mention of intractable epilepsy [facility] Focal epilepsy ([facility]CC)- Primary Localization-related (focal) (partial) epilepsy and epileptic syndromes with simple partial seizures, without mention of intractable epilepsy [facility] Diagnosis Focal epilepsy (HCC)- Primary Localization-related (focal) (partial) epilepsy and epileptic syndromes with simple partial seizures, without mention of intractable epilepsy [facility] Diagnosis Partial epilepsy with impairment of consciousness (HCC)- Primary Localization-related (focal) (partial) epilepsy and epileptic syndromes with complex partial seizures, without mention of intractable epilepsy [facility] Diagnosis 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) Localization-related (focal) (partial) epilepsy and epileptic syndromes with simple partial seizures, without mention of intractable epilepsy [facility] Diagnosis 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) Localization-related (focal) (partial) epilepsy and epileptic syndromes with simple partial seizures, without mention of intractable epilepsy [facility] Diagnosis 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) Localization-related (focal) (partial) epilepsy and epileptic syndromes with simple partial seizures, without mention of intractable epilepsy [facility] Diagnosis Onset Date Resolution Status Admit Date Sore throat noneactive June 13, 2024 9:27am [facility] Work Phone: Evaluation note* Diagnosis 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) Localization-related (focal) (partial) epilepsy and epileptic syndromes with simple partial seizures, without mention of intractable epilepsy [facility] Diagnosis 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) Localization-related (focal) (partial) epilepsy and epileptic syndromes with simple partial seizures, without mention of intractable epilepsy [facility] Diagnosis 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) Localization-related (focal) (partial) epilepsy and epileptic syndromes with simple partial seizures, without mention of intractable epilepsy [facility] Diagnosis 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) Localization-related (focal) (partial) epilepsy and epileptic syndromes with simple partial seizures, without mention of intractable epilepsy [facility] 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) Localization-related (focal) (partial) epilepsy and epileptic syndromes with simple partial seizures, without mention of intractable epilepsy [facility] Narrative No data available for this section [facility] No data available for this section [facility] Additional Instructions If your symptoms return/worsen or you develop any further concerns or symptoms please see your doctor or return to the emergency department immediately. Please be sure to follow-up with your neurologist as we discussed.[facility] Work Phone: Progress note No data available for this section [facility] [place] Reason for referral (narrative)* Outpatient Procedure (Routine) - Pending Review Specialty Diagnoses / Procedures Referred By James mondragon Referred To [facility] Diagnoses Seizure (HCC) Procedures EPIL EEG LEAD PLACEMENT EEG EXTENDED MONITORING 61-119 MINUTES ELECTROENCEPHALOGRAM REC COMA/SLEEP ONLY Vonnie Black APRN.CNP [address] [place] [address] [facility] [address] [place] [address] Referral ID Status Reason Start Date Expiration Date Visits Requested Visits Authorized [id number] Pending Review Auto-Generat ed Referral 3 03/23/2024 1 1 [facility] Chief Complaint and Reason for Visit Chief Complaint Siezure Chief Complaint Admit Date Sore throat, cough June 13, 2024 9: 27am Reason for Visit Admit Date Sore throat June 13, 2024 9: 27am Advance Directives Advance Directive Response Recorded Date/ Time Advance Directives No February 12:55pm Advance Directive Response Recorded Date/ Time Advance Directives No February 11:55am Summary Purpose Family History No Family History Records FoundNo Family History Records FoundNo Family History Records FoundNo Family History Records Found Reason for Referral Specialty Diagnoses / Procedures Referred By James t Referred To Contact Diagnoses 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) Dennys Collier APRN.[employer] [address] [place] [address] Referral ID Status Reason Start Date Expiration Date Visits Re quested Visits Authorized [id number] Closed 1 1 Additional Source Comments Care Team (unrecognized sect ion and content) Team Status: Active Member Role Status Dates Ruperto Contreras DO Primary Care Provider Active Team Status: Inactive Member Role Status Dates Ruperto Contreras DO Primary Care Provider Active Start: June 13, 2024 End: June 13, 2024 Yolanda Erwin APRN Attending Provider Active S tart: June 13, 2024 End: June 13, 2024 Team Status: Inactive Member Role Status Dates Matty Ryan DO Emergency Provider Active Ruperto Contreras DO Primary Care Provider Active Fire Production Operator Relationship Specialty Start Date End Date Ruperto Contreras DO [address] [place] [address] PCP - General Family Medicine 04/12/23 Fire Production Operator Relationship Specialty Start Date End Date Ruperto Contreras DO [address] [place] [address] PCP - General Family Medicine 04/12/23 Fire Production Operator Relationship Specialty Start Date End Date Ruperto Contreras DO [address] [place] [address] PCP - General Family Medicine 04/12/23 Fire Production Operator Relationship Specialty Start Date End Date Ruperto Contreras DO [address] [place] [address] PCP - General Family Medicine 04/12/23 Fire Production Operator Relationship Specialty Start Date End Date Ruperto Contreras DO [address] [place] [facility] [place] [address] PCP - General Family Medicine 04/12/23 Fire Production Operator Relationship Specialty Start Date End Date Ruperto Contreras DO [address] [place] [facility] [place] [address] PCP - General Family Medicine 04/12/23 Fire Production Operator Relationship Specialty Start Date End Date Ruperto Contreras DO [address] [place] [facility] [place] [address] PCP - General Family Medicine 04/12/23 Fire Production Operator Relationship Specialty Start Date End Date Ruperto Contreras DO [address] [place] [facility] [place] [address] PCP - General Family Medicine 04/12/23 Fire Production Operator Relationship Specialty Start Date End Date Ruperto Contreras DO [address] [place] [facility] [place] [address] PCP - General Family Medicine 04/12/23 Fire Production Operator Relationship Specialty Start Date End Date Ruperto Contreras DO [address] [place] [facility] [place] [address] PCP - General Family Medicine 04/12/23 Fire Production Operator Relationship Specialty Start Date End Date Ruperto Contreras DO [address] [place] [facility] [place] [address] PCP - General Family Medicine 04/12/23 Fire Production Operator Relationship Specialty Start Date End Date Ruperto Contreras DO [address] [place] [facility] [place] [address] PCP - General Family Medicine 04/12/23 Goals (unrecognized section and content) Goals may be documented in a n alternate section (unrecognized sect ion and content) No Status Records FoundNo Status Records FoundNo Status Records FoundNo Status Records Found INFORMATION SOURCE (unrecogn ized section and content) DATE CREATED AUTHOR 10/12/2022 [facility] DATE CREATED AUTHOR AUTHOR'S ORGANIZ ATION 10/18/2023 [facility] DATE CREATED AUTHOR AUTHOR'S ORGANIZ ATION 11/01/2023 [facility] DATE CREATED AUTHOR AUTHOR'S ORGANIZ ATION 07/01/2024 [facility] Source Comments (unrecognize d section and content) In the event this informatio n is protected by the Federal Confidentiality of Alcohol and Drug Abuse Patient Records regulations: The Federal rules restrict any use of the information to criminally investigate or prosecute any alcohol or drug abuse patient.[facility] the event this information is protected by the Federal Confidentiality of Alcohol and Drug Abuse Patient Records regulations: The Federal rules restrict any use of the information to criminally investigate or prosecute any alcohol or drug abuse patient.[facility] the event this information is protected by the Federal Confidentiality of Alcohol and Drug Abuse Patient Records regulations: The Federal rules restrict any use of the information to criminally investigate or prosecute any alcohol or drug abuse patient.[facility] the event this information is protected by the Federal Confidentiality of Alcohol and Drug Abuse Patient Records regulations: The Federal rules restrict any use of the information to criminally investigate or prosecute any alcohol or drug abuse patient.[facility] the event this information is protected by the Federal Confidentiality of Alcohol and Drug Abuse Patient Records regulations: The Federal rules restrict any use of the information to criminally investigate or prosecute any alcohol or drug abuse patient.[facility] the event this information is protected by the Federal Confidentiality of Alcohol and Drug Abuse Patient Records regulations: The Federal rules restrict any use of the information to criminally investigate or prosecute any alcohol or drug abuse patient.[facility] the event this information is protected by the Federal Confidentiality of Alcohol and Drug Abuse Patient Records regulations: The Federal rules restrict any use of the information to criminally investigate or prosecute any alcohol or drug abuse patient.[facility] the event this information is protected by the Federal Confidentiality of Alcohol and Drug Abuse Patient Records regulations: The Federal rules restrict any use of the information to criminally investigate or prosecute any alcohol or drug abuse patient.[facility] the event this information is protected by the Federal Confidentiality of Alcohol and Drug Abuse Patient Records regulations: The Federal rules restrict any use of the information to criminally investigate or prosecute any alcohol or drug abuse patient.[facility] the event this information is protected by the Federal Confidentiality of Alcohol and Drug Abuse Patient Records regulations: The Federal rules restrict any use of the information to criminally investigate or prosecute any alcohol or drug abuse patient.[facility] the event this information is protected by the Federal Confidentiality of Alcohol and Drug Abuse Patient Records regulations: The Federal rules restrict any use of the information to criminally investigate or prosecute any alcohol or drug abuse patient.[facility] the event this information is protected by the Federal Confidentiality of Alcohol and Drug Abuse Patient Records regulations: The Federal rules restrict any use of the information to criminally investigate or prosecute any alcohol or drug abuse patient.[facility] the event this information is protected by the Federal Confidentiality of Alcohol and Drug Abuse Patient Records regulations: The Federal rules restrict any use of the information to criminally investigate or prosecute any alcohol or drug abuse patient.[facility] the event this information is protected by the Federal Confidentiality of Alcohol and Drug Abuse Patient Records regulations: The Federal rules restrict any use of the information to criminally investigate or prosecute any alcohol or drug abuse patient.[facility] the event this information is protected by the Federal Confidentiality of Alcohol and Drug Abuse Patient Records regulations: The Federal rules restrict any use of the information to criminally investigate or prosecute any alcohol or drug abuse patient.[facility] the event this information is protected by the Federal Confidentiality of Alcohol and Drug Abuse Patient Records regulations: The Federal rules restrict any use of the information to criminally investigate or prosecute any alcohol or drug abuse patient.[facility] the event this information is protected by the Federal Confidentiality of Alcohol and Drug Abuse Patient Records regulations: The Federal rules restrict any use of the information to criminally investigate or prosecute any alcohol or drug abuse patient.[facility] the event this information is protected by the Federal Confidentiality of Alcohol and Drug Abuse Patient Records regulations: The Federal rules restrict any use of the information to criminally investigate or prosecute any alcohol or drug abuse patient.[facility] the event this information is protected by the Federal Confidentiality of Alcohol and Drug Abuse Patient Records regulations: The Federal rules restrict any use of the information to criminally investigate or prosecute any alcohol or drug abuse patient.[facility] the event this information is protected by the Federal Confidentiality of Alcohol and Drug Abuse Patient Records regulations: The Federal rules restrict any use of the information to criminally investigate or prosecute any alcohol or drug abuse patient.[facility] Reason for Visit (unrecogniz ed section and content) Reason Comments Future Appointment New Pt, [place], Any Reason Onset Date Comments Refill Request 05/22/2023 Reason Comments Follow Up Seizures post EMU visit Reason Comments Epilepsy Reason Comments Outside Labs Results LCM Reason Onset Date Comments Refill Request 11/06/2023 Reason Comments Refill Request Reason Onset Date Comments Refill Request 11/20/2023 Reason Onset Date Comments Refill Request 06/26/2024 Reason Onset Date Comments Refill Request 08/01/2024 Reason Onset Date Comments Refill Request 11/14/2024 Reason Onset Date Comments Refill Request 11/25/2024 FOR RECORDS PERTAINING TO PATIENTS WHO ARE OR HAVE BEEN ENROLLED IN A CHEMICAL DEPENDENCY/SUBSTANCEABUSE PROGRAM, SOME INFORMATION MAY BE OMITTED. This clinical summary was aggregated from multiple sources. Caution should be exercised in using it in the provision of clinical care. This summary normalizes information from multiple sources, and as a consequence, information in this document may materially change the coding, format and clinical context of patient data. In addition, data may be omitted in some cases. CLINICAL DECISIONS SHOULD BE BASED ON THE PRIMARY CLINICAL RECORDS. [email or web address]. provides no warranty or guarantee of the accuracy or completeness of information in this document.
[2024-11-30] MEDS: DIAZEPAM 5 MG TABLET PO (12:13)
[2024-11-30] MEDS: LACOSAMIDE 50 MG TABLET 200 MG PO (12:14)
[2024-11-30] MEDS: DIVALPROEX SODIUM 250 MG TAB.ER.24H PO (12:16)
[2024-11-30] MEDS: DIVALPROEX SODIUM 500 MG TABLET.DR PO (12:17)
--- NOTE | 2024-11-30 12:37 | ED_ITS ---
HPI - Medical Clearance General Chief complaint: Medical Clearance Stated complaint: EPILEPSY STUTTERING JAW PAIN Time Seen by Provider: 11/30/24 11:18 Source: patient Mode of arrival: walk-in Limitations: no limitations History of Present Illness HPI Narrative: 33-year-old male to the emergency department chief complaint of seizure-like activity. Patient has longstanding epilepsy managed by Dr. Wheat at the [facility]. 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 He reports that he felt very tired when he woke up and his face was sore. He has a history of significant focal seizures while sleeping which is how he got his epilepsy diagnosis. He feels the way he did before he started on his medications. He called his epilepsy team at the [facility] and was referred to the emergency department to make sure he was okay. Patient expresses concerns about if he can drive or not. He did not take his morning medications yet. Related Information Home Medications ?Medication ?Instructions ?Recorded ?Confirmed allopurinol 300 mg tablet 300 mg PO DAILY 02/02/23 divalproex 250 mg tablet,extended 250 mg PO BID 11/30/24 release 24 hr clobazam 10 mg tablet 10 mg PO .QHS 11/30/2411/30 divalproex 500 mg tablet,delayed 500 mg PO Q12H 11/30/24 release lacosamide 200 mg tablet 200 mg PO Q12H 11/30/2411/11 Allergies Allergy/AdvReac Type Severity Reaction Status Date / Time naproxen (From Aleve) Allergy Severe Swelling Verified 11/30/24 11:18 of Lip/Tongue/Throat Review of Systems ROS Status of ROS 10 or more systems reviewed and unremark able except as noted in history and below PFSH PFSH Social History Little interest or pleasure in doing things: not at all Feeling down, depressed, or hopeless: not at all Exam Narrative Exam Narrative: VITALS: I have reviewed the triage vital signs. GENERAL: Well developed, well appearing adult in no acute distress. NEURO: Alert and oriented x4. Moves all extremities. Face is symmetric and expressive. Cranial nerves II through XII grossly intact as tested. Muscular strength and sensation grossly intact upper and lower extremities bilaterally. No dysarthria. No aphasia. No ataxia. Normal gait. NIHSS 0. EYES: PERRL. No scleral icterus or conjunctival injection. No discharge. HENT: Normocephalic, atraumatic. Hearing is grossly intact. Nares grossly patent and without discharge. Mucous membranes moist. NECK: No JVD. Patient moves neck without restriction. CARDIO: Rhythm regular. Normal rate. No murmur, rub, or gallop. Pulses equal bilaterally in the upper and lower extremity. No lower extremity edema. PULM: Lungs clear to auscultation in all uriostegui. No wheezes, rales, or rhonchi. No conversational dyspnea. No splinting, stridor, or accessory muscle use. GI/: Abdomen is soft and non-tender. Normoactive bowel sounds. EXTREMITIES: Symmetric muscle bulk. No joint swelling. No clubbing, cyanosis, or deformity. SKIN: Warm and dry. Normal turgor. No rash or lesions appreciated. PSYCH: Mood, affect, and interaction is appropriate to the setting. Constitutional Vital Signs, click to edit/add: Last Vital Signs Temp 97.8 F 11/30/24 11:18 Pulse 60 11/30/24 11:18 Resp 16 11/30/24 13:52 BP 135/85 11/30/24 13:52 Pulse Ox 97 11/30/24 13:52 O2 Del Method Room Air 11/30/24 13:52 Course Vital Signs Vital signs: Vital Signs Temperature 97.8 F 11/30/24 11:18 Pulse Rate 60 11/30/24 11:18 Respiratory Rate 20 11/30/24 11:18 Blood Pressure 140/104 H 11/30/24 11:18 Pulse Oximetry 98 11/30/24 11:18 Temperature 97.8 F 11/30/24 11:18 Pulse Rate 60 11/30/24 11:18 Respiratory Rate 16 11/30/24 13:52 Blood Pressure 135/85 11/30/24 13:52 Pulse Oximetry 97 11/30/24 13:52 Oxygen Delivery Method Room Air 11/30/24 13:52 MDM - Medical Clearance [facility] Narrative Medical decision making narrative: Well-appearing 33-year-old male to the emergency department with chief complaint of suspected focal seizures overnight. Vital stable, the patient is afebrile. His neurologic exam is nonfocal. The patient is well-appearing and in no distress. Home meds were reviewed with the patient. I also pulled his last neurology clinic note in [facility] from 06/29/2024 to confirm his medications and doses. He was given his Depakote, lacosamide, and a dose of diazepam equivalent to his clobazam. A call was placed to his epilepsy team at the [facility] to discuss further. Discussed with the PA who is on-call for the epilepsy service. They agree with plan. They asked that he abstain from driving for 1 week. He may call the office to discuss in 1 week. If he is having no issues they may allow him to return to driving at that point. I discussed with the patient. He agrees with this plan. He understands he is not to drive for a week. He may return to work. We discussed seizure precautions including avoiding situations which should become dangerous should he suddenly lose consciousness. Patient and his understand. He will continue to take his medications. Return precautions were discussed. All questions were answered. The patient was discharged home. Medical Records Attestation: I reviewed the patient's medical records. Discharge Plan Discharge Chief Complaint: Medical Clearance Clinical Impression: Epileptic seizure Patient Disposition: Home, Self-Care Time of Disposition Decision: 12:40 Prescriptions / Home Meds: No Action lacosamide 200 mg tablet 200 mg PO Q12H clobazam 10 mg tablet 10 mg PO .QHS divalproex 500 mg tablet,delayed release (DR/EC) 500 mg PO Q12H Rx Instructions: CLARIFIED WITH NEUROLOGIST TAKES 250 MG ER FORMULATION BID ALONG WITH [address] FORMULATION BID allopurinol 300 mg tablet 300 mg PO DAILY divalproex 250 mg tablet extended release 24 hr 250 mg PO BID Rx Instructions: CLARIFIED WITH NEUROLOGIST TAKES 250 MG ER FORMULATION BID ALONG WITH [address] FORMULATION BID Print Language: Albanian Instructions: Epilepsy (ED), Recurrent Seizures in Adults (ED) Additional Instructions: Call the office of your primary care doctor to arrange for follow-up within the above-stated timeframe. Your ED visit was focused on your acute issue and does not replace primary care. You should review your labs, imaging, and diagnoses from this ED visit with your primary care physician. There may be non-emergent/ incidental findings that need further evaluation. You should review your vital signs including blood pressure with your PCP. If you were prescribed medications you should discuss possible side-effects and drug interactions with your pharmacist. Call 911 or go to the nearest Emergency Department if you develop any new or worsening symptoms. I spoke with the epilepsy team at [facility] today. They recommended you abstain from driving for 1 week. You are okay to work. Call their office to discuss. They may clear you at that time or issue further restrictions. You should avoid situations that would become dangerous if you suddenly lost consciousness like swimming alone, bathing alone, climbing, driving etc. until cleared by neurology. Referrals: JOHANNA SANTOYO [Primary Care Provider] - 1 week Discharge Date/Time: 11/30/24 13:54
[2024-11-30 13:00] VITALS: BP 130/85
[2024-11-30 13:52] VITALS: BP 135/85; O2SAT 97
== END 2024-11-30 13:54 | disposition home or self-care (01) ==
PROVIDERS: Emergency Provider Student in an Organized Health Care Education/Training Program; PCP Nurse Practitioner Family
DX: G40.909 Epilepsy, unspecified, not intractable, without status epilepticus (principal); Z79.899 Other long term (current) drug therapy
CPT/HCPCS: 99284